=== PATIENT | male | born 1955 | race Two or more races ===

== ENCOUNTER 2018-03-21 17:12 | Inpatient (IN) | payer MEDICARE, MEDICAID ==
[2018-03-21 19:11] LABS: % BASOPHILS 0.6 % (0.0-2.0); % EOSINOPHILS 1.4 % (0.0-5.0); % LYMPHOCYTES 45.2 % (20.0-50.0); % MONOCYTES 8.4 % (2.0-10.0); % NEUTROPHILS 44.4 % (40.0-80.0); EOSINOPHILE ABSOLUTE 0.1 Th/cmm (0.1-0.4); HEMATOCRIT 37.1 % (41.0-60); HEMOGLOBIN 12.4 gm/dL (12-16); LYMPHOCYTE ABSOLUTE 3.6 Th/cmm (1.5-3.0); MEAN CELL VOLUME 92.4 fl (80-99); MEAN CORPUSCULAR HEMOGLOBIN 30.8 pg (26.0-30.0); MEAN CORPUSCULAR HGB CONC 33.4 pg (28.0-36.0); MEAN PLATELET VOLUME 9.4 fl; MONOCYTE ABSOLUTE 0.6 Th/cmm (0.3-1.0); NEUTROPHILE ABSOLUTE 3.4 Th/cmm (1.8-8.0); PLATELET COUNT 285 Th/cmm (150-400); RED BLOOD COUNT 4.02 Mil/cmm (4.30-5.70); RED CELL DISTRIBUTION WIDTH 13.4 % (11.5-20.0); WHITE BLOOD COUNT 7.7 Th/cmm (4.8-10.8)
[2018-03-21 19:30] LABS: ACETAMINOPHEN < 10.0 ug/mL (10.0-30.0); ALB/GLOB RATIO 1.4 (1.0-1.8); ALBUMIN 3.9 gm/dL (4.2-5.5); ALKALINE PHOSPHATASE 67 U/L (34-104); ANION GAP 13.6 (7.0-16.0); BILIRUBIN,TOTAL 0.3 mg/dL (0.3-1.0); BUN - UREA NITROGEN 28 mg/dL (7-25); CALCIUM SERUM 10.1 mg/dL (8.6-10.3); CHLORIDE 105 mEq/L (98-107); CHOLESTEROL 152 mg/dL (<200); CREATININE - SERUM 1.1 mg/dL (0.7-1.3); GFR AFRICAN-AMERICAN > 60.0 ml/min (>90); GFR NON AFRICAN-AMERICAN > 60.0 ml/min; GLUCOSE 196 mg/dL (70-105); HDL -HIGH DENSITY LIPOPROTEIN 30 mg/dL (23-92); POTASSIUM SERUM 4.6 mEq/L (3.5-5.1); SALICYLATES (ASPIRIN) < 25.0 mg/L (30.0-100.0); SGOT 10 U/L (13-39); SGPT/ALT 10 U/L (7-52); SODIUM SERUM 137 mEq/L (136-145); TOTAL PROTEIN,SERUM 6.6 gm/dL (6.0-8.3); TRIGLYCERIDES 145 mg/dL (<150)
[2018-03-21 23:10] VITALS: BP 128/82
[2018-03-21] MEDS ORDERED: Maalox 30 mL Cup PO PRN (23:11)
[2018-03-21] MEDS ORDERED: Magnesium Hydroxide (MOM) 30 mL UDC PO PRN (23:11)
[2018-03-21] MEDS ORDERED: Non-Formulary Item 1 EA (Glucagon,Human Recombinant [Glucagon Emergency Kit] 1 MG) IM PRN (23:47)
--- NOTE | 2018-03-22 04:50 | ED Physician Chart ---
ED Chief Complaint/HPI - Patient Information Date Seen:: 03/21/18 Time Seen:: 17:40 Chief Complaint:: Agitation History of Present Illness:: onset x 2 days of agitation and aggressive behavior; no report of trauma, SIs, H /As, neck pain, C/P, SOB, Abd. Pain, A/N/V/D/C, fever, chills, or urinary s/s Allergies:: Allergies Allergy/AdvReac Type Severity Reaction Status Date / Time diphenhydramine Allergy Verified 03/21/18 17:40 [From Benadryl] risperidone [From Risperdal] Allergy Verified 03/21/18 17:41 Historian:: Patient, EMS Review:: Nurse's Note Reviewed, Old Chart Reviewed, EMS run form Reviewed ED Review of Systems - Review of Systems General/Constitutional: No fever, No chills, No weight loss, No weakness, No diaphoresis, No edema, No loss of appetite Skin: No skin lesions, No rash, No bruising Head: No headache, No light-headedness Eyes: No loss of vision, No pain, No diplopia ENT: No earache, No nasal drainage, No sore throat, No tinnitus Neck: No neck pain, No swelling, No thyromegaly, No stiffness, No mass noted Cardio Vascular: No chest pain, No palpitations, No PND, No orthopnea, No edema Pulmonary: No SOB, No cough, No sputum, No wheezing GI: No nausea, No vomiting, No diarrhea, No pain, No melena, No hematochezia, No constipation, No hematemesis G/U: No dysuria, No frequency, No hematuria, No nacturia Musculoskeletal: No bone or joint pain, No back pain, No muscle pain Endocrine: No polyuria, No polydipsia Psychiatric: Prior psych history, No depression, Anxiety, No suicidal ideation, No homicidal ideation, No auditory hallucination, No visual hallucination Hematopoietic: No bruising, No lymphadenopathy Allergic/Immuno: No urticaria, No angioedema Neurological: No syncope, No focal symptoms, No weakness, No paresthesia, No headache, No seizure, No dizziness, Confusion, No vertigo ED Past Medical History - Past Medical History Obtainable: Yes Past Medical History: HTN, DM, Dyslipidemia, Dementia Family History: Diabetes Melitus, HTN Social History: Non Smoker, No Alcohol, No Drug Use, Single, Care Facility Surgical History: None Psychiatricy History: Schizophrenia, Bipolar, Dementia Medication: Reviewed Family Medical History - Family Member Mother History Unknown: Yes ED Physical Exam - Physical Examination General/Constitutional: Awake, Well-developed, well-nourished, Alert, No distress, GCS 15, Non-toxic appearing, Ambulatory Head: Atraumatic Eyes: Lids, conjuctiva normal, PERRL, EOMI Skin: Nl inspection, No rash, No skin lesions, No ecchymosis, Well hydrated, No lymphadenopathy ENMT: External ears, nose nl, TM canals nl, Nasal exam nl, Lips, teeth, gums nl , Oropharynx nl, Tonsils nl Neck: Nontender, Full ROM w/o pain, No JVD, No nuchal rigidity, No bruit, No mass, No stridor Respiratory: Nl effort/Exclusion, Clear to Auscultation, No Wheeze/Rhonchi/Rales Cardio Vascular: RRR, No murmur, gallop, rubs, NL S1 S2, Carotid/Femoral/Distal pulses equal bilaterally GI: No tenderness/rebounding/guarding, No organomegaly, No hernia, Normal BS's, Nondistended, No mass/bruits, No McBurney tenderness : No CVA tenderness Extremities: No tenderness or effusion, Full ROM, normal strength in all extremities, No edema, Normal digits & nails Neuro/Psych: Alert/oriented, DTR's symmetric, Normal sensory exam, Normal motor strength, Judgement/insight normal, Mood normal, Normal gait, No focal deficits Other Neuro/Psych comments:: + Psychomotor Agitation; no SIs; Mood/Affect: Labile Misc: Normal back, No paraspinal tenderness ED Labs/Radiology/EKG Results - Lab Results Results: Laboratory Tests 03/21/18 03/21/18 03/21/18 18:50 18:50 18:50 WBC 7.7 RBC 4.02 L Hgb 12.4 Hct 37.1 L MCV 92.4 MCH 30.8 H MCHC Differential 33.4 RDW 13.4 Plt Count 285 MPV 9.4 Neutrophils % 44.4 Lymphocytes % 45.2 Monocytes % 8.4 Eosinophils % 1.4 Basophils % 0.6 Sodium 137 Potassium 4.6 Chloride 105 Carbon Dioxide 23.0 Anion Gap 13.6 BUN 28 H Creatinine 1.1 Est GFR ( Amer) > 60.0 Est GFR (Non-Af Amer) > 60.0 BUN/Creatinine Ratio 25.5 Glucose 196 H Calcium 10.1 Total Bilirubin 0.3 AST 10 L ALT 10 Alkaline Phosphatase 67 Troponin I Total Protein 6.6 Albumin 3.9 L Globulin 2.7 Albumin/Globulin Ratio 1.4 Triglycerides 145 Cholesterol 152 LDL Cholesterol Direct 95 HDL Cholesterol 30 TSH 1.32 Salicylates < 25.0 L Acetaminophen < 10.0 L Ethyl Alcohol < 10 03/21/18 18:50 WBC RBC Hgb Hct MCV MCH MCHC Differential RDW Plt Count MPV Neutrophils % Lymphocytes % Monocytes % Eosinophils % Basophils % Sodium Potassium Chloride Carbon Dioxide Anion Gap BUN Creatinine Est GFR ( Amer) Est GFR (Non-Af Amer) BUN/Creatinine Ratio Glucose Calcium Total Bilirubin AST ALT Alkaline Phosphatase Troponin I < 0.01 L Total Protein Albumin Globulin Albumin/Globulin Ratio Triglycerides Cholesterol LDL Cholesterol Direct HDL Cholesterol TSH Salicylates Acetaminophen Ethyl Alcohol Comments:: Reviewed - EKG Interpretations EKG Time:: 19:12 Rate & Rhythm: 97; NSR Comments:: non-specific st-t changes ED Septic Shock - . Is Septic Shock (SBP<90, OR Lactate>4 mmol\L) present?: No ED Reassessment (Disposition) - Reassessment Reassessment Condition:: Improved - Diagnosis Diagnosis:: Agitation; Medical Clearance; Psychosis; Bipolar Disorder; Schizophrenia - Aftercare/Follow up Instructions Aftercare/Follow-Up Instructions:: Counseled pt regarding lab results/diagnosis & need follow up, Counseled pt & family regarding lab results/diagnosis & need follow up - Patient Disposition Discharge/Transfer:: Acute Care w/in this hosp Admitted to:: [facility] Condition at Disposition:: Stable, Improved
[2018-03-22] MEDS: INSULIN ASPART, RECOMBINANT 100 UNITS/ML SUBQ SCH ×4 (06:36→22:35)
[2018-03-22] MEDS ORDERED: GLUCAGON HCl 1 MG KIT IM PRN (08:59)
[2018-03-22] MEDS: Multivitamin Tab PO SCH (09:24)
--- NOTE | 2018-03-22 16:40 | History & Physical ---
ADMIT DATE: 03/21/2018 CHIEF COMPLAINT: Admitted to inpatient [facility]. HISTORY OF PRESENT ILLNESS: This is a 63-year-old male with history of hypertension, hypercholesterolemia, diabetes, admitted from nursing facility under the service of Dr. Jefferson. The patient denies any fever, chills, night sweats, or chest pain. PAST MEDICAL HISTORY: As mentioned in history of present illness. PAST SURGICAL HISTORY: Denies surgeries. ALLERGIES: BENADRYL, RISPERIDONE. MEDICATIONS: Cogentin, Depakote, Haldol, insulin, Norvasc, atorvastatin, Colace, glucagon, Levemir, Tradjenta, lisinopril, and metformin. FAMILY HISTORY: Noncontributory. SOCIAL HISTORY: The patient smokes on occasion, does not drink or intravenous drug use. The patient is with 1 child. REVIEW OF SYSTEMS: GENERAL: The patient denies any constitutional symptoms. HEENT: No blurred vision. LUNGS: No diagnoses of COPD or asthma. HEART: The patient with hypertension, diabetes. ABDOMEN: No nausea, vomiting, or pain. GENITOURINARY: The patient denies increased frequency or dysuria. NEUROLOGIC: No headache, seizure, or syncope. PSYCHIATRIC: See above. PHYSICAL EXAMINATION: VITAL SIGNS: Blood pressure 134/76, respirations 20, pulse 105, temperature 97.3. GENERAL: An elderly male who appears his stated age. The patient ____ mental state. NECK: Supple. No mass. LUNGS: Equal breath sounds, otherwise clear to auscultation. HEART: Regular rate and rhythm without appreciable murmurs. ABDOMEN: Soft, nontender. EXTREMITIES: No cyanosis or edema. LABORATORY DATA: WBC 7, hemoglobin 12, platelets 285. Sodium 137, potassium 4.6, BUN 20, creatinine 1.1, blood sugar ____, albumin 3.9. ASSESSMENT: 1. Hypertension. 2. Hypercholesterolemia. 3. Diabetes. 4. Anemia. 5. Renal insufficiency. 6. Low albumin. PLAN: We will continue the patient on IV insulin sliding scale. We will monitor for any signs and symptoms of hypoglycemia. Continue blood pressure medication. Continue psychiatric medication. Continue with current care provider, which is Dr. Jefferson. JOB# [id number]
[2018-03-22] MEDS: Insulin Detemir 100 units/mL 10mL Vial SUBQ SCH (21:00)
[2018-03-22] MEDS ORDERED: INSULIN DETEMIR 58 UNIT SC SCH (21:00)
[2018-03-22] MEDS: Atorvastatin Calcium 10 MG TAB PO SCH (21:00)
--- NOTE | 2018-03-23 06:19 | Psychiatric Evaluation ---
DATE OF SERVICE: 03/21/2018 PSYCHIATRIC INITIAL EVALUATION AND MENTAL STATUS EXAM PATIENT'S AGE: 63-year-old SEX: Male. PHYSICIAN: Dr. Jefferson. CHIEF COMPLAINT: Agitation and irritable mood. HISTORY OF PRESENT ILLNESS: The patient is a 63-year-old male who was transferred from [facility] because of increased agitation and combative behavior towards staff. The patient has been suspicious and paranoid and guarded. The patient also has not been able to sleep much at night. He also has been suspicious and increasingly agitated. I received a phone call from [facility] that he cannot control the patient's behavior and that he has been out of control and the patient was transferred to the hospital. PAST PSYCHIATRIC HISTORY: The patient has a history of what seems to be schizoaffective disorder. PAST MEDICAL HISTORY: The patient has diabetes mellitus as well as hypertension and osteoarthritis. SOCIAL HISTORY: The patient said that he is . Also said that he has 1 son, but it seemed that he is not in contact with his son. He also is confused and he thinks that he lives in the hospital when I asked him where do you live "I live here." No known alcohol or drug use. No known legal issues. ALLERGIES: No known allergies. MENTAL STATUS EXAMINATION: The patient appears slightly older than his stated age. Anxious. Flat affect. In a depressed mood. Easily agitated and easily irritable. Thought processes are circumstantial with occasional flight of ideas. The patient seems preoccupied, although he denies any auditory or visual hallucinations or delusions. The patient denied any thoughts of suicide or homicide. The patient is alert and oriented to situation, but not to the place or date or person. Impaired immediate memory, but intact remote memory. Poor insight and poor judgment. ASSESSMENT: PRIMARY DIAGNOSIS: Schizoaffective disorder, mixed type, with psychotic features, severe. TREATMENT PLAN: We will monitor the patient's behavior and condition closely. The patient currently is not taking any antipsychotic medications, but we will start the patient on Seroquel 25 mg every day and we will adjust the dose. Also, we will monitor his behavior and will follow up. ESTIMATED LENGTH OF STAY: 5-7 days. THE PATIENT'S STRENGTHS AND WEAKNESSES: The patient's strength is not clear at this time. Weaknesses are his ineffective coping and poor judgment and poor impulse control. AFTER DISCHARGE PLAN: Outpatient treatment and followup will continue as an outpatient. CRITERIA FOR DISCHARGE: The patient will not be agitated or psychotic and will stabilize psychotropic medications and will establish outpatient treatment plans. Also, the patient will be able to return to [facility]. JOB# [id number]
[2018-03-23] MEDS: INSULIN ASPART, RECOMBINANT 100 UNITS/ML SUBQ SCH ×4 (06:33→20:21)
[2018-03-23] MEDS: Multivitamin Tab PO SCH (09:19)
--- NOTE | 2018-03-23 13:12 | Internal Medicine Prog Note ---
Internal Medicine Subjective - Subjective Patient seen and examined:: with staff, chart reviewed Patient is:: awake, verbal, interactive, in wheelchair Per staff patient has:: no adverse event, no episodes of fall, eating well, tolerating meds Internal Medicine Objective - Results Result Diagrams: 03/21/18 18:50 03/21/18 18:50 Recent Labs: Laboratory Last Values WBC 7.7 Th/cmm (4.8-10.8) 03/21/18 18:50 RBC 4.02 Mil/cmm (4.30-5.70) L 03/21/18 18:50 Hgb 12.4 gm/dL (12-16) 03/21/18 18:50 Hct 37.1 % (41.0-60) L 03/21/18 18:50 MCV 92.4 fl (80-99) 03/21/18 18:50 MCH 30.8 pg (26.0-30.0) H 03/21/18 18:50 MCHC Differential 33.4 pg (28.0-36.0) 03/21/18 18:50 RDW 13.4 % (11.5-20.0) 03/21/18 18:50 Plt Count 285 Th/cmm (150-400) 03/21/18 18:50 MPV 9.4 fl 03/21/18 18:50 Neutrophils % 44.4 % (40.0-80.0) 03/21/18 18:50 Lymphocytes % 45.2 % (20.0-50.0) 03/21/18 18:50 Monocytes % 8.4 % (2.0-10.0) 03/21/18 18:50 Eosinophils % 1.4 % (0.0-5.0) 03/21/18 18:50 Basophils % 0.6 % (0.0-2.0) 03/21/18 18:50 Sodium 137 mEq/L (136-145) 03/21/18 18:50 Potassium 4.6 mEq/L (3.5-5.1) 03/21/18 18:50 Chloride 105 mEq/L (98-107) 03/21/18 18:50 Carbon Dioxide 23.0 mEq/L (21.0-31.0) 03/21/18 18:50 Anion Gap 13.6 (7.0-16.0) 03/21/18 18:50 BUN 28 mg/dL (7-25) H 03/21/18 18:50 Creatinine 1.1 mg/dL (0.7-1.3) 03/21/18 18:50 Est GFR ( Amer) > 60.0 ml/min (>90) 03/21/18 18:50 Est GFR (Non-Af Amer) > 60.0 ml/min 03/21/18 18:50 BUN/Creatinine Ratio 25.5 03/21/18 18:50 Glucose 196 mg/dL (70-105) H 03/21/18 18:50 POC Glucose 274 MG/DL (70 - 105) H 03/23/18 06:05 Calcium 10.1 mg/dL (8.6-10.3) 03/21/18 18:50 Total Bilirubin 0.3 mg/dL (0.3-1.0) 03/21/18 18:50 AST 10 U/L (13-39) L 03/21/18 18:50 ALT 10 U/L (7-52) 03/21/18 18:50 Alkaline Phosphatase 67 U/L (34-104) 03/21/18 18:50 Troponin I < 0.01 ng/mL (0.01-0.05) L 03/21/18 18:50 Total Protein 6.6 gm/dL (6.0-8.3) 03/21/18 18:50 Albumin 3.9 gm/dL (4.2-5.5) L 03/21/18 18:50 Globulin 2.7 gm/dL 03/21/18 18:50 Albumin/Globulin Ratio 1.4 (1.0-1.8) 03/21/18 18:50 Triglycerides 145 mg/dL (<150) 03/21/18 18:50 Cholesterol 152 mg/dL (<200) 03/21/18 18:50 LDL Cholesterol Direct 95 mg/dL (75-193) 03/21/18 18:50 HDL Cholesterol 30 mg/dL (23-92) 03/21/18 18:50 TSH 1.32 uIU/ml (0.34-5.60) 03/21/18 18:50 Salicylates < 25.0 mg/L (30.0-100.0) L 03/21/18 18:50 Acetaminophen < 10.0 ug/mL (10.0-30.0) L 03/21/18 18:50 Ethyl Alcohol < 10 mg/dL (0-10) 03/21/18 18:50 RPR NONREACTIVE (NONREACTIVE) 03/21/18 18:50 - Physical Exam Vitals and I&O: Vital Signs Temp 97 F 03/23/18 06:31 Pulse 102 03/23/18 09:20 Resp 19 03/23/18 06:31 BP 113/73 03/23/18 09:20 Pulse Ox 99 03/23/18 06:31 Intake & Output 03/22/18 03/23/18 03/23/18 18:59 06:59 18:59 Intake Total 900 120 Balance 900 120 Intake: Oral 900 120 Other: # Voids 3 3 # Bowel Movements 1 Stool Characteristics Soft Soft Active Medications: Current Medications Acetaminophen (Tylenol) 650 mg PO Q4H PRN PRN Reason: Pain Or Fever above 101 Stop: 05/20/18 23:48 Al Hydrox/Mg Hydrox/Simethicone (Maalox) 30 ml PO Q4HR PRN PRN Reason: GI DISTRESS Stop: 05/20/18 23:10 Amlodipine Besylate (Norvasc) 5 mg PO DAILY [facility] Stop: 05/21/18 08:59 Last Admin: 03/23/18 09:20 Dose: 5 mg Atorvastatin Calcium (Lipitor) 10 mg PO HS [facility] Stop: 05/21/18 20:59 Last Admin: 03/22/18 21:00 Dose: 10 mg Docusate Sodium (Colace) 100 mg PO DAILY [facility] Stop: 05/21/18 08:59 Last Admin: 03/23/18 09:19 Dose: 100 mg Glucagon (Glucagen) 1 mg IM DAILY PRN PRN Reason: High Sugar Levels Stop: 05/21/18 08:58 Insulin Aspart (Novolog) 0 units SUBQ [facility]; Protocol Stop: 05/21/18 07:29 Last Admin: 03/23/18 06:33 Dose: 4 units Insulin Detemir (Levemir Insulin) 58 units SUBQ [facility] Stop: 05/21/18 20:59 Last Admin: 03/22/18 21:00 Dose: Not Given Lisinopril (Zestril) 10 mg PO DAILY [facility] Stop: 05/21/18 08:59 Last Admin: 03/23/18 09:19 Dose: 10 mg Lorazepam (Ativan) 0.5 mg PO Q4HR PRN; Protocol PRN Reason: Anxiety Stop: 04/20/18 23:10 Magnesium Hydroxide (Milk Of Magnesia) 30 ml PO HS PRN PRN Reason: Constipation Metformin HCl (Glucophage) 1,000 mg PO BIDWM [facility] Stop: 05/21/18 07:59 Last Admin: 03/23/18 08:00 Dose: 1,000 mg Multivitamins/Vitamin C (Theragran) 1 tab PO DAILY [facility] Stop: 05/21/18 08:59 Last Admin: 03/23/18 09:19 Dose: 1 tab Quetiapine Fumarate (Seroquel) 25 mg PO BID [facility]; Protocol Stop: 05/21/18 08:59 Last Admin: 03/23/18 09:18 Dose: 25 mg Zolpidem Tartrate (Ambien) 5 mg PO HS PRN PRN Reason: Insomnia Stop: 05/20/18 23:10 HEENT: NC/AT, PERRLA, EOMI Neck: Supple, No JVD, No thyromegaly Lungs: CTAB Cardiovascular: RRR, Normal S1, Normal S2 Abdomen: soft, non-tender, non-distended, positive bowel sound Extremities: excoriation Neurological: no change Internal Medicine Assmt/Plan - Assessment Assessment: ASSESSMENT: 1. Hypertension. 2. Hypercholesterolemia. 3. Diabetes. 4. Anemia. 5. Renal insufficiency. 6. Low albumin. - Plan Plan: PLAN: We will continue the patient on IV insulin sliding scale. We will monitor for any signs and symptoms of hypoglycemia. Continue blood pressure medication. Continue psychiatric medication. Continue with current care provider, which is Dr. Jefferson. Nutritional Asmnt/Malnutr-PDOC - Dietary Evaluation Malnutrition Findings (Please click <Entered> for more info): Nutritional Asmnt/Malnutrition Start: 03/22/18 11: 29 Text: Status: Complete Freq: Protocol: Document 03/22/18 11:30 RHAQUE (Rec: 03/22/18 11:38 RHAQUE JAYDEN) Nutritional Asmnt/Malnutrition Patient General Information Nutritional Screening High Risk Diagnosis Agitation, Combative Pertinent Medical Hx/Surgical Hx HTN, DM, Dyslipidemia, Dementia, Schizophrenia, Bipolar (Per MD's note). Also BPH, Osteoarthritis, Psychosis , Anxiety, Major Depression ( per Nurse's note) Subjective Information Pt preferred to communicate in romanian when he was visited. Did not ask for extra food or snacks. Both the nurse & MAGAZINE SUPERVISOR described him as very quiet, well behaved and introverted. Neither was certain of any B.M .'s Current Diet Order/ Nutrition Support [place] [id number] GM Patient / S.O Not Indicated Pertinent Medications Maalox, Lipitor, Docusate, Glucagon, Insulin Aspart, Insulin Detemir, MOM, Metformin HCl, Multivitamins, Ambien Pertinent Labs (03/21) Gluc 196; (03/22) POC Gluc 284 Nutritional Hx/Data Height 1.73 m Height (Calculated Centimeters) 172.7 Current Weight (lbs) 74.843 kg Weight (Calculated Kilograms) 74.8 Weight (Calculated Grams) 23106.7 [place] Body Weight 154 % [place] Body Weight 107 Body Mass Index (BMI) 25.0 Weight Status Approriate GI Symptoms GI Symptoms None Last BM None Noted Difficult in: None Food Allergies No Cultural/Ethnic/Denominational Belief None Noted Skin Integrity/Comment: No documentation available Current %PO Good (75-100%) Estimated Nutritional Goals BEE in Kcals: Adj wt of IBW Calories/Kcals/Kg 25-30 Kcals Calculated 9250-3878 Protein g/k.8-1 Protein Calculated 57-71 Fluid: ml [id number] Nutritional Problem 1. Problem Problem altered Nutritional related Lab values Etiology due to inadequate medication dosage aeb Signs/Symptoms: Hyperglycemia: (03/21) Gluc 196 ; (03/22) POC Gluc 284 Malnutrition Alert Is there a minimum of two criteria No selected? Query Text:Check all the applicable criteria. A minimum of two criteria are recommended for diagnosis of either severe or non-severe malnutrition. Malnutrition Related to Morbid Obesity Malnutrition related to morbid obesity No Intervention/Recommendation Comments Recommend MD's adjustment of DM medication and continuation of [place] [id number] diet. Expected Outcomes/Goals Expected Outcomes/Goals - Maintain 100% PO Intake - Gluc labs return to WNL - Monitor for constipation, no record of B.M.'s since admission - F/U in 3-5 days as
[2018-03-23] MEDS ORDERED: INSULIN ASPART, RECOMBINANT 100 UNITS/ML SUBQ ONE (13:25)
[2018-03-23] MEDS: Atorvastatin Calcium 10 MG TAB PO SCH (20:20)
[2018-03-23] MEDS: Insulin Detemir 100 units/mL 10mL Vial SUBQ SCH (20:22)
[2018-03-24] MEDS: INSULIN ASPART, RECOMBINANT 100 UNITS/ML SUBQ SCH ×4 (06:29→20:30)
[2018-03-24] MEDS: Multivitamin Tab PO SCH (09:05)
--- NOTE | 2018-03-24 11:06 | Internal Medicine Prog Note ---
Internal Medicine Subjective - Subjective Service Date: 03/24/18 Patient is:: awake, verbal, interactive, in wheelchair Per staff patient has:: no adverse event, no episodes of fall, eating well, tolerating meds Internal Medicine Objective - Results Result Diagrams: 03/21/18 18:50 03/21/18 18:50 Recent Labs: Laboratory Last Values WBC 7.7 Th/cmm (4.8-10.8) 03/21/18 18:50 RBC 4.02 Mil/cmm (4.30-5.70) L 03/21/18 18:50 Hgb 12.4 gm/dL (12-16) 03/21/18 18:50 Hct 37.1 % (41.0-60) L 03/21/18 18:50 MCV 92.4 fl (80-99) 03/21/18 18:50 MCH 30.8 pg (26.0-30.0) H 03/21/18 18:50 MCHC Differential 33.4 pg (28.0-36.0) 03/21/18 18:50 RDW 13.4 % (11.5-20.0) 03/21/18 18:50 Plt Count 285 Th/cmm (150-400) 03/21/18 18:50 MPV 9.4 fl 03/21/18 18:50 Neutrophils % 44.4 % (40.0-80.0) 03/21/18 18:50 Lymphocytes % 45.2 % (20.0-50.0) 03/21/18 18:50 Monocytes % 8.4 % (2.0-10.0) 03/21/18 18:50 Eosinophils % 1.4 % (0.0-5.0) 03/21/18 18:50 Basophils % 0.6 % (0.0-2.0) 03/21/18 18:50 Sodium 137 mEq/L (136-145) 03/21/18 18:50 Potassium 4.6 mEq/L (3.5-5.1) 03/21/18 18:50 Chloride 105 mEq/L (98-107) 03/21/18 18:50 Carbon Dioxide 23.0 mEq/L (21.0-31.0) 03/21/18 18:50 Anion Gap 13.6 (7.0-16.0) 03/21/18 18:50 BUN 28 mg/dL (7-25) H 03/21/18 18:50 Creatinine 1.1 mg/dL (0.7-1.3) 03/21/18 18:50 Est GFR ( Amer) > 60.0 ml/min (>90) 03/21/18 18:50 Est GFR (Non-Af Amer) > 60.0 ml/min 03/21/18 18:50 BUN/Creatinine Ratio 25.5 03/21/18 18:50 Glucose 196 mg/dL (70-105) H 03/21/18 18:50 POC Glucose 80 MG/DL (70 - 105) 03/24/18 06:28 Calcium 10.1 mg/dL (8.6-10.3) 03/21/18 18:50 Total Bilirubin 0.3 mg/dL (0.3-1.0) 03/21/18 18:50 AST 10 U/L (13-39) L 03/21/18 18:50 ALT 10 U/L (7-52) 03/21/18 18:50 Alkaline Phosphatase 67 U/L (34-104) 03/21/18 18:50 Troponin I < 0.01 ng/mL (0.01-0.05) L 03/21/18 18:50 Total Protein 6.6 gm/dL (6.0-8.3) 03/21/18 18:50 Albumin 3.9 gm/dL (4.2-5.5) L 03/21/18 18:50 Globulin 2.7 gm/dL 03/21/18 18:50 Albumin/Globulin Ratio 1.4 (1.0-1.8) 03/21/18 18:50 Triglycerides 145 mg/dL (<150) 03/21/18 18:50 Cholesterol 152 mg/dL (<200) 03/21/18 18:50 LDL Cholesterol Direct 95 mg/dL (75-193) 03/21/18 18:50 HDL Cholesterol 30 mg/dL (23-92) 03/21/18 18:50 TSH 1.32 uIU/ml (0.34-5.60) 03/21/18 18:50 Salicylates < 25.0 mg/L (30.0-100.0) L 03/21/18 18:50 Acetaminophen < 10.0 ug/mL (10.0-30.0) L 03/21/18 18:50 Ethyl Alcohol < 10 mg/dL (0-10) 03/21/18 18:50 RPR NONREACTIVE (NONREACTIVE) 03/21/18 18:50 - Physical Exam Vitals and I&O: Vital Signs Temp 98.1 F 03/24/18 05:49 Pulse 104 03/24/18 09:07 Resp 18 03/24/18 05:49 BP 104/55 03/24/18 09:07 Pulse Ox 96 03/24/18 05:49 Intake & Output 03/23/18 03/24/18 03/24/18 18:59 06:59 18:59 Intake Total 900 120 Balance 900 120 Intake: Oral 900 120 Other: # Voids 3 2 # Bowel Movements 1 0 Stool Characteristics Soft Soft Active Medications: Current Medications Acetaminophen (Tylenol) 650 mg PO Q4H PRN PRN Reason: Pain Or Fever above 101 Stop: 05/20/18 23:48 Al Hydrox/Mg Hydrox/Simethicone (Maalox) 30 ml PO Q4HR PRN PRN Reason: GI DISTRESS Stop: 05/20/18 23:10 Amlodipine Besylate (Norvasc) 5 mg PO DAILY [facility] Stop: 05/21/18 08:59 Last Admin: 03/24/18 09:06 Dose: Not Given Atorvastatin Calcium (Lipitor) 10 mg PO HS [facility] Stop: 05/21/18 20:59 Last Admin: 03/23/18 20:20 Dose: 10 mg Docusate Sodium (Colace) 100 mg PO DAILY [facility] Stop: 05/21/18 08:59 Last Admin: 03/24/18 09:05 Dose: 100 mg Glucagon (Glucagen) 1 mg IM DAILY PRN PRN Reason: High Sugar Levels Stop: 05/21/18 08:58 Insulin Aspart (Novolog) 0 units SUBQ [facility]; Protocol Stop: 05/21/18 07:29 Last Admin: 03/24/18 06:29 Dose: Not Given Insulin Detemir (Levemir Insulin) 58 units SUBQ HS [facility] Stop: 05/21/18 20:59 Last Admin: 03/23/18 20:22 Dose: 58 unit Lisinopril (Zestril) 10 mg PO DAILY [facility] Stop: 05/21/18 08:59 Last Admin: 03/24/18 09:07 Dose: Not Given Lorazepam (Ativan) 0.5 mg PO Q4HR PRN; Protocol PRN Reason: Anxiety Stop: 04/20/18 23:10 Magnesium Hydroxide (Milk Of Magnesia) 30 ml PO HS PRN PRN Reason: Constipation Metformin HCl (Glucophage) 1,000 mg PO BIDWM [facility] Stop: 05/21/18 07:59 Last Admin: 03/24/18 09:05 Dose: 1,000 mg Multivitamins/Vitamin C (Theragran) 1 tab PO DAILY [facility] Stop: 05/21/18 08:59 Last Admin: 03/24/18 09:05 Dose: 1 tab Mupirocin (Bactroban Oint) 1 appl NS BID [facility] Stop: 03/28/18 09:01 Last Admin: 03/24/18 09:09 Dose: 1 appl Quetiapine Fumarate (Seroquel) 25 mg PO BID [facility]; Protocol Stop: 05/21/18 08:59 Last Admin: 03/24/18 09:06 Dose: 25 mg Zolpidem Tartrate (Ambien) 5 mg PO HS PRN PRN Reason: Insomnia Stop: 05/20/18 23:10 HEENT: NC/AT, PERRLA, EOMI Neck: Supple, No JVD, No thyromegaly Lungs: CTAB Cardiovascular: RRR, Normal S1, Normal S2 Abdomen: soft, non-tender, non-distended, positive bowel sound Extremities: excoriation Neurological: no change Internal Medicine Assmt/Plan - Assessment Assessment: . Hypertension. 2. Hypercholesterolemia. 3. Diabetes. 4. Anemia. 5. Renal insufficiency. 6. Low albumin. - Plan Plan: continue with sliding scale fall precautions continue current plan of care Nutritional Asmnt/Malnutr-PDOC - Dietary Evaluation Malnutrition Findings (Please click <Entered> for more info): Nutritional Asmnt/Malnutrition Start: 03/22/18 11: 29 Text: Status: Complete Freq: Protocol: Document 03/22/18 11:30 RHAQUE (Rec: 03/22/18 11:38 RHAQUE JAYDEN) Nutritional Asmnt/Malnutrition Patient General Information Nutritional Screening High Risk Diagnosis Agitation, Combative Pertinent Medical Hx/Surgical Hx HTN, DM, Dyslipidemia, Dementia, Schizophrenia, Bipolar (Per MD's note). Also BPH, Osteoarthritis, Psychosis , Anxiety, Major Depression ( per Nurse's note) Subjective Information Pt preferred to communicate in hungarian when he was visited. Did not ask for extra food or snacks. Both the nurse & [employer] described him as very quiet, well behaved and introverted. Neither was certain of any B.M .'s Current Diet Order/ Nutrition Support [place] [id number] GM Patient / S.O Not Indicated Pertinent Medications Maalox, Lipitor, Docusate, Glucagon, Insulin Aspart, Insulin Detemir, MOM, Metformin HCl, Multivitamins, Ambien Pertinent Labs (03/21) Gluc 196; (03/22) POC Gluc 284 Nutritional Hx/Data Height 5 ft 8 in Height (Calculated Centimeters) 172.7 Current Weight (lbs) 165 lb Weight (Calculated Kilograms) 74.8 Weight (Calculated Grams) 93371.7 [place] Body Weight 154 % [place] Body Weight 107 Body Mass Index (BMI) 25.0 Weight Status Approriate GI Symptoms GI Symptoms None Last BM None Noted Difficult in: None Food Allergies No Cultural/Ethnic/Mandaen Belief None Noted Skin Integrity/Comment: No documentation available Current %PO Good (75-100%) Estimated Nutritional Goals BEE in Kcals: Adj wt of IBW Calories/Kcals/Kg 25-30 Kcals Calculated 3397-9728 Protein g/k.8-1 Protein Calculated 57-71 Fluid: ml 6068-9918 Nutritional Problem 1. Problem Problem altered Nutritional related Lab values Etiology due to inadequate medication dosage aeb Signs/Symptoms: Hyperglycemia: (03/21) Gluc 196 ; (03/22) POC Gluc 284 Malnutrition Alert Is there a minimum of two criteria No selected? Query Text:Check all the applicable criteria. A minimum of two criteria are recommended for diagnosis of either severe or non-severe malnutrition. Malnutrition Related to Morbid Obesity Malnutrition related to morbid obesity No Intervention/Recommendation Comments Recommend MD's adjustment of DM medication and continuation of [place] [address] diet. Expected Outcomes/Goals Expected Outcomes/Goals - Maintain 100% PO Intake - Gluc labs return to WNL - Monitor for constipation, no record of B.M.'s since admission - F/U in 3-5 days as
[2018-03-24] MEDS: Atorvastatin Calcium 10 MG TAB PO SCH (20:29)
[2018-03-24] MEDS: Insulin Detemir 100 units/mL 10mL Vial SUBQ SCH (20:31)
--- NOTE | 2018-03-24 23:00 | Progress Notes ---
DATE: 03/24/2018 SUBJECTIVE: The patient was seen and evaluated. The patient's chart reviewed. This is Dr. Garcia covering for Dr. Jefferson. IDENTIFYING DATA: He is a 63-year-old male who was brought in here and transferred from [facility] because of increased agitation and combative behavior towards the staff. He has been suspicious, paranoid. CURRENT MEDICATION REGIMEN. The patient is on amlodipine, ____ glucagon, insulin, lisinopril, metformin, Seroquel 25 mg p.o. b.i.d. Overnight nursing staff reported the patient had been suspicious. Today on elra-ak-npcy evaluation, the patient is guarded, withdrawn, minimally interactive in the interview, mostly preoccupied about trying his picture. MENTAL STATUS EXAMINATION: Suspicious, agitated. PLAN: The patient is a 63-year-old male with a previous history of schizophrenia, tolerating to recent increase of Seroquel to 50 mg a day. We will continue to monitor and evaluate as medication continued to build steady state. To target the patient's ongoing agitated behavior. JOB# [id number]
--- NOTE | 2018-03-25 02:54 | Progress Notes ---
DATE: 03/23/2018 SUBJECTIVE: Chart reviewed and the patient interviewed. Also, discussed the patient's condition with the staff and reviewed records and labs. The patient is still increasingly agitated and is still in irritable mood. The patient also still need close monitoring of his behavior. Also, is still suspicious and paranoid. The patient also is still having anger and irritability for no reason. On the other hand, the patient is compliant with taking his medications with no side effects of medications. TREATMENT PLAN: We will continue to monitor his behavior and will continue to work on his irritability and his psychosis and poor impulse control. JOB# [id number]
[2018-03-25] MEDS: INSULIN ASPART, RECOMBINANT 100 UNITS/ML SUBQ SCH ×4 (06:42→21:29)
[2018-03-25] MEDS: Multivitamin Tab PO SCH (08:22)
--- NOTE | 2018-03-25 12:34 | Internal Medicine Prog Note ---
Internal Medicine Subjective - Subjective Service Date: 03/25/18 Patient is:: awake, verbal, interactive, in wheelchair Per staff patient has:: no adverse event, no episodes of fall, eating well, tolerating meds Internal Medicine Objective - Results Result Diagrams: 03/21/18 18:50 03/21/18 18:50 Recent Labs: Laboratory Last Values WBC 7.7 Th/cmm (4.8-10.8) 03/21/18 18:50 RBC 4.02 Mil/cmm (4.30-5.70) L 03/21/18 18:50 Hgb 12.4 gm/dL (12-16) 03/21/18 18:50 Hct 37.1 % (41.0-60) L 03/21/18 18:50 MCV 92.4 fl (80-99) 03/21/18 18:50 MCH 30.8 pg (26.0-30.0) H 03/21/18 18:50 MCHC Differential 33.4 pg (28.0-36.0) 03/21/18 18:50 RDW 13.4 % (11.5-20.0) 03/21/18 18:50 Plt Count 285 Th/cmm (150-400) 03/21/18 18:50 MPV 9.4 fl 03/21/18 18:50 Neutrophils % 44.4 % (40.0-80.0) 03/21/18 18:50 Lymphocytes % 45.2 % (20.0-50.0) 03/21/18 18:50 Monocytes % 8.4 % (2.0-10.0) 03/21/18 18:50 Eosinophils % 1.4 % (0.0-5.0) 03/21/18 18:50 Basophils % 0.6 % (0.0-2.0) 03/21/18 18:50 Sodium 137 mEq/L (136-145) 03/21/18 18:50 Potassium 4.6 mEq/L (3.5-5.1) 03/21/18 18:50 Chloride 105 mEq/L (98-107) 03/21/18 18:50 Carbon Dioxide 23.0 mEq/L (21.0-31.0) 03/21/18 18:50 Anion Gap 13.6 (7.0-16.0) 03/21/18 18:50 BUN 28 mg/dL (7-25) H 03/21/18 18:50 Creatinine 1.1 mg/dL (0.7-1.3) 03/21/18 18:50 Est GFR ( Amer) > 60.0 ml/min (>90) 03/21/18 18:50 Est GFR (Non-Af Amer) > 60.0 ml/min 03/21/18 18:50 BUN/Creatinine Ratio 25.5 03/21/18 18:50 Glucose 196 mg/dL (70-105) H 03/21/18 18:50 POC Glucose 316 MG/DL (70 - 105) H 03/25/18 11:29 Calcium 10.1 mg/dL (8.6-10.3) 03/21/18 18:50 Total Bilirubin 0.3 mg/dL (0.3-1.0) 03/21/18 18:50 AST 10 U/L (13-39) L 03/21/18 18:50 ALT 10 U/L (7-52) 03/21/18 18:50 Alkaline Phosphatase 67 U/L (34-104) 03/21/18 18:50 Troponin I < 0.01 ng/mL (0.01-0.05) L 03/21/18 18:50 Total Protein 6.6 gm/dL (6.0-8.3) 03/21/18 18:50 Albumin 3.9 gm/dL (4.2-5.5) L 03/21/18 18:50 Globulin 2.7 gm/dL 03/21/18 18:50 Albumin/Globulin Ratio 1.4 (1.0-1.8) 03/21/18 18:50 Triglycerides 145 mg/dL (<150) 03/21/18 18:50 Cholesterol 152 mg/dL (<200) 03/21/18 18:50 LDL Cholesterol Direct 95 mg/dL (75-193) 03/21/18 18:50 HDL Cholesterol 30 mg/dL (23-92) 03/21/18 18:50 TSH 1.32 uIU/ml (0.34-5.60) 03/21/18 18:50 Salicylates < 25.0 mg/L (30.0-100.0) L 03/21/18 18:50 Acetaminophen < 10.0 ug/mL (10.0-30.0) L 03/21/18 18:50 Ethyl Alcohol < 10 mg/dL (0-10) 03/21/18 18:50 RPR NONREACTIVE (NONREACTIVE) 03/21/18 18:50 - Physical Exam Vitals and I&O: Vital Signs Temp 97.9 F 03/25/18 06:41 Pulse 103 03/25/18 08:22 Resp 20 03/25/18 06:41 BP 128/81 03/25/18 08:22 Pulse Ox 98 03/25/18 06:41 Intake & Output 03/24/18 03/25/18 03/25/18 18:59 06:59 18:59 Intake Total 950 480 Balance 950 480 Intake: Oral 950 480 Other: # Voids 4 2 # Bowel Movements 1 Stool Characteristics Soft Active Medications: Current Medications Acetaminophen (Tylenol) 650 mg PO Q4H PRN PRN Reason: Pain Or Fever above 101 Stop: 05/20/18 23:48 Al Hydrox/Mg Hydrox/Simethicone (Maalox) 30 ml PO Q4HR PRN PRN Reason: GI DISTRESS Stop: 05/20/18 23:10 Amlodipine Besylate (Norvasc) 5 mg PO DAILY [facility] Stop: 05/21/18 08:59 Last Admin: 03/25/18 08:22 Dose: 5 mg Atorvastatin Calcium (Lipitor) 10 mg PO HS [facility] Stop: 05/21/18 20:59 Last Admin: 03/24/18 20:29 Dose: 10 mg Docusate Sodium (Colace) 100 mg PO DAILY [facility] Stop: 05/21/18 08:59 Last Admin: 03/25/18 08:21 Dose: 100 mg Glucagon (Glucagen) 1 mg IM DAILY PRN PRN Reason: High Sugar Levels Stop: 05/21/18 08:58 Insulin Aspart (Novolog) 0 units SUBQ [facility]; Protocol Stop: 05/21/18 07:29 Last Admin: 03/25/18 11:34 Dose: 6 units Insulin Detemir (Levemir Insulin) 58 units SUBQ HS [facility] Stop: 05/21/18 20:59 Last Admin: 03/24/18 20:31 Dose: 58 unit Lisinopril (Zestril) 10 mg PO DAILY [facility] Stop: 05/21/18 08:59 Last Admin: 03/25/18 08:21 Dose: 10 mg Lorazepam (Ativan) 0.5 mg PO Q4HR PRN; Protocol PRN Reason: Anxiety Stop: 04/20/18 23:10 Magnesium Hydroxide (Milk Of Magnesia) 30 ml PO HS PRN PRN Reason: Constipation Metformin HCl (Glucophage) 1,000 mg PO BIDWM [facility] Stop: 05/21/18 07:59 Last Admin: 03/25/18 08:21 Dose: 1,000 mg Multivitamins/Vitamin C (Theragran) 1 tab PO DAILY [facility] Stop: 05/21/18 08:59 Last Admin: 03/25/18 08:22 Dose: 1 tab Mupirocin (Bactroban Oint) 1 appl NS BID [facility] Stop: 03/28/18 09:01 Last Admin: 03/25/18 08:21 Dose: 1 appl Quetiapine Fumarate (Seroquel) 25 mg PO BID [facility]; Protocol Stop: 05/21/18 08:59 Last Admin: 03/25/18 08:21 Dose: 25 mg Zolpidem Tartrate (Ambien) 5 mg PO HS PRN PRN Reason: Insomnia Stop: 05/20/18 23:10 HEENT: NC/AT, PERRLA, EOMI Neck: Supple, No JVD, No thyromegaly Lungs: CTAB Cardiovascular: RRR, Normal S1, Normal S2 Abdomen: soft, non-tender, non-distended, positive bowel sound Extremities: excoriation Neurological: no change Internal Medicine Assmt/Plan - Assessment Assessment: . Hypertension. 2. Hypercholesterolemia. 3. Diabetes. 4. Anemia. 5. Renal insufficiency. 6. Low albumin. - Plan Plan: continue with sliding scale fall precautions continue current plan of care Nutritional Asmnt/Malnutr-PDOC - Dietary Evaluation Malnutrition Findings (Please click <Entered> for more info): Nutritional Asmnt/Malnutrition Start: 03/22/18 11: 29 Text: Status: Complete Freq: Protocol: Document 03/22/18 11:30 RHAQUE (Rec: 03/22/18 11:38 RHAQUE JAYDEN) Nutritional Asmnt/Malnutrition Patient General Information Nutritional Screening High Risk Diagnosis Agitation, Combative Pertinent Medical Hx/Surgical Hx HTN, DM, Dyslipidemia, Dementia, Schizophrenia, Bipolar (Per MD's note). Also BPH, Osteoarthritis, Psychosis , Anxiety, Major Depression ( per Nurse's note) Subjective Information Pt preferred to communicate in south african when he was visited. Did not ask for extra food or snacks. Both the nurse & [employer] described him as very quiet, well behaved and introverted. Neither was certain of any B.M .'s Current Diet Order/ Nutrition Support [place] [id number] GM Patient / S.O Not Indicated Pertinent Medications Maalox, Lipitor, Docusate, Glucagon, Insulin Aspart, Insulin Detemir, MOM, Metformin HCl, Multivitamins, Ambien Pertinent Labs (03/21) Gluc 196; (03/22) POC Gluc 284 Nutritional Hx/Data Height 5 ft 8 in Height (Calculated Centimeters) 172.7 Current Weight (lbs) 165 lb Weight (Calculated Kilograms) 74.8 Weight (Calculated Grams) 91867.7 [place] Body Weight 154 % [place] Body Weight 107 Body Mass Index (BMI) 25.0 Weight Status Approriate GI Symptoms GI Symptoms None Last BM None Noted Difficult in: None Food Allergies No Cultural/Ethnic/Orthodoxy Belief None Noted Skin Integrity/Comment: No documentation available Current %PO Good (75-100%) Estimated Nutritional Goals BEE in Kcals: Adj wt of IBW Calories/Kcals/Kg 25-30 Kcals Calculated 9694-5358 Protein g/k.8-1 Protein Calculated 57-71 Fluid: ml 1856-7017 Nutritional Problem 1. Problem Problem altered Nutritional related Lab values Etiology due to inadequate medication dosage aeb Signs/Symptoms: Hyperglycemia: (03/21) Gluc 196 ; (03/22) POC Gluc 284 Malnutrition Alert Is there a minimum of two criteria No selected? Query Text:Check all the applicable criteria. A minimum of two criteria are recommended for diagnosis of either severe or non-severe malnutrition. Malnutrition Related to Morbid Obesity Malnutrition related to morbid obesity No Intervention/Recommendation Comments Recommend MD's adjustment of DM medication and continuation of [place] [address] diet. Expected Outcomes/Goals Expected Outcomes/Goals - Maintain 100% PO Intake - Gluc labs return to WNL - Monitor for constipation, no record of B.M.'s since admission - F/U in 3-5 days as
--- NOTE | 2018-03-25 20:43 | Progress Notes ---
DATE: 03/25/2018 SUBJECTIVE: The patient was seen and evaluated. The patient's chart reviewed. Covering for Dr. Jefferson. Today on [id number] evaluation, the patient has difficulty with thought blocking, also has difficulty engaging in conversation. There is a lot of word finding. He has been compliant with medications. MENTAL STATUS EXAMINATION: Still irritable, easily agitated, disengaged. ASSESSMENT AND PLAN: The patient is a 63-year-old male with a previous history of schizophrenia, tolerating the recent increase of Seroquel without complication. We will continue monitoring and evaluating and target the patient's symptoms and continue working very closely with medical assistant prn for a safe disposition when the patient is further stabilized. JOB# [id number]
[2018-03-25] MEDS: Atorvastatin Calcium 10 MG TAB PO SCH (20:58)
[2018-03-25] MEDS: Insulin Detemir 100 units/mL 10mL Vial SUBQ SCH (21:01)
[2018-03-26] MEDS: INSULIN ASPART, RECOMBINANT 100 UNITS/ML SUBQ SCH ×4 (06:30→21:22)
[2018-03-26] MEDS: Multivitamin Tab PO SCH (08:26)
--- NOTE | 2018-03-26 12:53 | Internal Medicine Prog Note ---
Internal Medicine Subjective - Subjective Patient seen and examined:: with staff, chart reviewed Patient is:: awake, verbal, interactive, in wheelchair Per staff patient has:: no adverse event, no episodes of fall, eating well, tolerating meds Internal Medicine Objective - Results Result Diagrams: 03/21/18 18:50 03/21/18 18:50 Recent Labs: Laboratory Last Values WBC 7.7 Th/cmm (4.8-10.8) 03/21/18 18:50 RBC 4.02 Mil/cmm (4.30-5.70) L 03/21/18 18:50 Hgb 12.4 gm/dL (12-16) 03/21/18 18:50 Hct 37.1 % (41.0-60) L 03/21/18 18:50 MCV 92.4 fl (80-99) 03/21/18 18:50 MCH 30.8 pg (26.0-30.0) H 03/21/18 18:50 MCHC Differential 33.4 pg (28.0-36.0) 03/21/18 18:50 RDW 13.4 % (11.5-20.0) 03/21/18 18:50 Plt Count 285 Th/cmm (150-400) 03/21/18 18:50 MPV 9.4 fl 03/21/18 18:50 Neutrophils % 44.4 % (40.0-80.0) 03/21/18 18:50 Lymphocytes % 45.2 % (20.0-50.0) 03/21/18 18:50 Monocytes % 8.4 % (2.0-10.0) 03/21/18 18:50 Eosinophils % 1.4 % (0.0-5.0) 03/21/18 18:50 Basophils % 0.6 % (0.0-2.0) 03/21/18 18:50 Sodium 137 mEq/L (136-145) 03/21/18 18:50 Potassium 4.6 mEq/L (3.5-5.1) 03/21/18 18:50 Chloride 105 mEq/L (98-107) 03/21/18 18:50 Carbon Dioxide 23.0 mEq/L (21.0-31.0) 03/21/18 18:50 Anion Gap 13.6 (7.0-16.0) 03/21/18 18:50 BUN 28 mg/dL (7-25) H 03/21/18 18:50 Creatinine 1.1 mg/dL (0.7-1.3) 03/21/18 18:50 Est GFR ( Amer) > 60.0 ml/min (>90) 03/21/18 18:50 Est GFR (Non-Af Amer) > 60.0 ml/min 03/21/18 18:50 BUN/Creatinine Ratio 25.5 03/21/18 18:50 Glucose 196 mg/dL (70-105) H 03/21/18 18:50 POC Glucose 169 MG/DL (70 - 105) H 03/26/18 11:23 Calcium 10.1 mg/dL (8.6-10.3) 03/21/18 18:50 Total Bilirubin 0.3 mg/dL (0.3-1.0) 03/21/18 18:50 AST 10 U/L (13-39) L 03/21/18 18:50 ALT 10 U/L (7-52) 03/21/18 18:50 Alkaline Phosphatase 67 U/L (34-104) 03/21/18 18:50 Troponin I < 0.01 ng/mL (0.01-0.05) L 03/21/18 18:50 Total Protein 6.6 gm/dL (6.0-8.3) 03/21/18 18:50 Albumin 3.9 gm/dL (4.2-5.5) L 03/21/18 18:50 Globulin 2.7 gm/dL 03/21/18 18:50 Albumin/Globulin Ratio 1.4 (1.0-1.8) 03/21/18 18:50 Triglycerides 145 mg/dL (<150) 03/21/18 18:50 Cholesterol 152 mg/dL (<200) 03/21/18 18:50 LDL Cholesterol Direct 95 mg/dL (75-193) 03/21/18 18:50 HDL Cholesterol 30 mg/dL (23-92) 03/21/18 18:50 TSH 1.32 uIU/ml (0.34-5.60) 03/21/18 18:50 Salicylates < 25.0 mg/L (30.0-100.0) L 03/21/18 18:50 Acetaminophen < 10.0 ug/mL (10.0-30.0) L 03/21/18 18:50 Ethyl Alcohol < 10 mg/dL (0-10) 03/21/18 18:50 RPR NONREACTIVE (NONREACTIVE) 03/21/18 18:50 - Physical Exam Vitals and I&O: Vital Signs Temp 97.5 F 03/26/18 06:49 Pulse 116 03/26/18 08:26 Resp 20 03/26/18 06:49 BP 126/97 03/26/18 08:26 Pulse Ox 99 03/26/18 06:49 Intake & Output 03/25/18 03/26/18 03/26/18 18:59 06:59 18:59 Intake Total 1000 240 Balance 1000 240 Weight (lbs) 74.843 kg Intake: Oral 1000 240 Other: # Voids 4 3 # Bowel Movements 2 0 Weight Source Bedscale Active Medications: Current Medications Acetaminophen (Tylenol) 650 mg PO Q4H PRN PRN Reason: Pain Or Fever above 101 Stop: 05/20/18 23:48 Al Hydrox/Mg Hydrox/Simethicone (Maalox) 30 ml PO Q4HR PRN PRN Reason: GI DISTRESS Stop: 05/20/18 23:10 Amlodipine Besylate (Norvasc) 5 mg PO DAILY [facility] Stop: 05/21/18 08:59 Last Admin: 03/26/18 08:26 Dose: 5 mg Atorvastatin Calcium (Lipitor) 10 mg PO HS [facility] Stop: 05/21/18 20:59 Last Admin: 03/25/18 20:58 Dose: 10 mg Docusate Sodium (Colace) 100 mg PO DAILY [facility] Stop: 05/21/18 08:59 Last Admin: 03/26/18 08:26 Dose: 100 mg Glucagon (Glucagen) 1 mg IM DAILY PRN PRN Reason: High Sugar Levels Stop: 05/21/18 08:58 Insulin Aspart (Novolog) 0 units SUBQ [facility]; Protocol Stop: 05/21/18 07:29 Last Admin: 03/26/18 11:29 Dose: Not Given Insulin Detemir (Levemir Insulin) 40 units SUBQ HS [facility] Stop: 05/24/18 20:59 Last Admin: 03/25/18 21:01 Dose: 40 units Lisinopril (Zestril) 10 mg PO DAILY [facility] Stop: 05/21/18 08:59 Last Admin: 03/26/18 08:25 Dose: 10 mg Lorazepam (Ativan) 0.5 mg PO Q4HR PRN; Protocol PRN Reason: Anxiety Stop: 04/20/18 23:10 Magnesium Hydroxide (Milk Of Magnesia) 30 ml PO HS PRN PRN Reason: Constipation Metformin HCl (Glucophage) 1,000 mg PO BIDWM [facility] Stop: 05/21/18 07:59 Last Admin: 03/26/18 08:26 Dose: 1,000 mg Multivitamins/Vitamin C (Theragran) 1 tab PO DAILY [facility] Stop: 05/21/18 08:59 Last Admin: 03/26/18 08:26 Dose: 1 tab Mupirocin (Bactroban Oint) 1 appl NS BID [facility] Stop: 03/28/18 09:01 Last Admin: 03/26/18 08:25 Dose: 1 appl Quetiapine Fumarate (Seroquel) 25 mg PO BID [facility]; Protocol Stop: 05/21/18 08:59 Last Admin: 03/26/18 08:26 Dose: 25 mg Zolpidem Tartrate (Ambien) 5 mg PO HS PRN PRN Reason: Insomnia Stop: 05/20/18 23:10 HEENT: NC/AT, PERRLA, EOMI Neck: Supple, No JVD, No thyromegaly Lungs: CTAB Cardiovascular: RRR, Normal S1, Normal S2 Abdomen: soft, non-tender, non-distended, positive bowel sound Extremities: excoriation Neurological: no change Internal Medicine Assmt/Plan - Assessment Assessment: ASSESSMENT: 1. Hypertension. 2. Hypercholesterolemia. 3. Diabetes. 4. Anemia. 5. Renal insufficiency. 6. Low albumin. - Plan Plan: PLAN: We will continue the patient on IV insulin sliding scale. We will monitor for any signs and symptoms of hypoglycemia. Continue blood pressure medication. Continue psychiatric medication. Continue with current care Nutritional Asmnt/Malnutr-PDOC - Dietary Evaluation Malnutrition Findings (Please click <Entered> for more info): Nutritional Asmnt/Malnutrition Start: 03/22/18 11: 29 Text: Status: Complete Freq: Protocol: Document 03/22/18 11:30 RHAQUE (Rec: 03/22/18 11:38 LIEN CARPENTER) Nutritional Asmnt/Malnutrition Patient General Information Nutritional Screening High Risk Diagnosis Agitation, Combative Pertinent Medical Hx/Surgical Hx HTN, DM, Dyslipidemia, Dementia, Schizophrenia, Bipolar (Per MD's note). Also BPH, Osteoarthritis, Psychosis , Anxiety, Major Depression ( per Nurse's note) Subjective Information Pt preferred to communicate in [place] when he was visited. Did not ask for extra food or snacks. Both the nurse & LEVEE SUPERINTENDENT described him as very quiet, well behaved and introverted. Neither was certain of any B.M .'s Current Diet Order/ Nutrition Support [facility]-45 GM Patient / S.O Not Indicated Pertinent Medications Maalox, Lipitor, Docusate, Glucagon, Insulin Aspart, Insulin Detemir, MOM, Metformin HCl, Multivitamins, Ambien Pertinent Labs (03/21) Gluc 196; (03/22) POC Gluc 284 Nutritional Hx/Data Height 1.73 m Height (Calculated Centimeters) 172.7 Current Weight (lbs) 74.843 kg Weight (Calculated Kilograms) 74.8 Weight (Calculated Grams) 22071.7 [place] Body Weight 154 % [place] Body Weight 107 Body Mass Index (BMI) 25.0 Weight Status Approriate GI Symptoms GI Symptoms None Last BM None Noted Difficult in: None Food Allergies No Cultural/Ethnic/Islam Belief None Noted Skin Integrity/Comment: No documentation available Current %PO Good (75-100%) Estimated Nutritional Goals BEE in Kcals: Adj wt of IBW Calories/Kcals/Kg 25-30 Kcals Calculated 6174-2094 Protein g/k.8-1 Protein Calculated 57-71 Fluid: ml 4344-4590 Nutritional Problem 1. Problem Problem altered Nutritional related Lab values Etiology due to inadequate medication dosage aeb Signs/Symptoms: Hyperglycemia: (03/21) Gluc 196 ; (03/22) POC Gluc 284 Malnutrition Alert Is there a minimum of two criteria No selected? Query Text:Check all the applicable criteria. A minimum of two criteria are recommended for diagnosis of either severe or non-severe malnutrition. Malnutrition Related to Morbid Obesity Malnutrition related to morbid obesity No Intervention/Recommendation Comments Recommend MD's adjustment of DM medication and continuation of [facility]-45 diet. Expected Outcomes/Goals Expected Outcomes/Goals - Maintain 100% PO Intake - Gluc labs return to WNL - Monitor for constipation, no record of B.M.'s since admission - F/U in 3-5 days as MR
[2018-03-26] MEDS: Atorvastatin Calcium 10 MG TAB PO SCH (21:21)
[2018-03-26] MEDS: Insulin Detemir 100 units/mL 10mL Vial SUBQ SCH (21:21)
--- NOTE | 2018-03-27 05:19 | Progress Notes ---
DATE: SUBJECTIVE: Chart reviewed and the patient interviewed. Also discussed the patient's condition with the staff and reviewed records and labs. The patient is still preoccupied and is still guarded and withdrawn. The patient also is still monitored closely. He also is still disheveled and personal hygiene is poor. Otherwise, the patient is compliant with taking his medications with no side effects of medications. He is still showing improvement and no yelling and no foul language during my interview. ASSESSMENT: The patient is still psychotic. TREATMENT PLAN: Continue to monitor behavior closely and continue to follow up with placement issue. Also continue to follow up with his behavior. JOB# [id number]
[2018-03-27] MEDS: INSULIN ASPART, RECOMBINANT 100 UNITS/ML SUBQ SCH ×4 (07:17→20:57)
[2018-03-27] MEDS: Multivitamin Tab PO SCH (08:19)
--- NOTE | 2018-03-27 12:18 | Internal Medicine Prog Note ---
Internal Medicine Subjective - Subjective Patient seen and examined:: with staff, chart reviewed Patient is:: awake, verbal, interactive, in wheelchair Per staff patient has:: no adverse event, no episodes of fall, eating well, tolerating meds Internal Medicine Objective - Results Result Diagrams: 03/21/18 18:50 03/21/18 18:50 Recent Labs: Laboratory Last Values WBC 7.7 Th/cmm (4.8-10.8) 03/21/18 18:50 RBC 4.02 Mil/cmm (4.30-5.70) L 03/21/18 18:50 Hgb 12.4 gm/dL (12-16) 03/21/18 18:50 Hct 37.1 % (41.0-60) L 03/21/18 18:50 MCV 92.4 fl (80-99) 03/21/18 18:50 MCH 30.8 pg (26.0-30.0) H 03/21/18 18:50 MCHC Differential 33.4 pg (28.0-36.0) 03/21/18 18:50 RDW 13.4 % (11.5-20.0) 03/21/18 18:50 Plt Count 285 Th/cmm (150-400) 03/21/18 18:50 MPV 9.4 fl 03/21/18 18:50 Neutrophils % 44.4 % (40.0-80.0) 03/21/18 18:50 Lymphocytes % 45.2 % (20.0-50.0) 03/21/18 18:50 Monocytes % 8.4 % (2.0-10.0) 03/21/18 18:50 Eosinophils % 1.4 % (0.0-5.0) 03/21/18 18:50 Basophils % 0.6 % (0.0-2.0) 03/21/18 18:50 Sodium 137 mEq/L (136-145) 03/21/18 18:50 Potassium 4.6 mEq/L (3.5-5.1) 03/21/18 18:50 Chloride 105 mEq/L (98-107) 03/21/18 18:50 Carbon Dioxide 23.0 mEq/L (21.0-31.0) 03/21/18 18:50 Anion Gap 13.6 (7.0-16.0) 03/21/18 18:50 BUN 28 mg/dL (7-25) H 03/21/18 18:50 Creatinine 1.1 mg/dL (0.7-1.3) 03/21/18 18:50 Est GFR ( Amer) > 60.0 ml/min (>90) 03/21/18 18:50 Est GFR (Non-Af Amer) > 60.0 ml/min 03/21/18 18:50 BUN/Creatinine Ratio 25.5 03/21/18 18:50 Glucose 196 mg/dL (70-105) H 03/21/18 18:50 POC Glucose 107 MG/DL (70 - 105) H 03/27/18 07:16 Calcium 10.1 mg/dL (8.6-10.3) 03/21/18 18:50 Total Bilirubin 0.3 mg/dL (0.3-1.0) 03/21/18 18:50 AST 10 U/L (13-39) L 03/21/18 18:50 ALT 10 U/L (7-52) 03/21/18 18:50 Alkaline Phosphatase 67 U/L (34-104) 03/21/18 18:50 Troponin I < 0.01 ng/mL (0.01-0.05) L 03/21/18 18:50 Total Protein 6.6 gm/dL (6.0-8.3) 03/21/18 18:50 Albumin 3.9 gm/dL (4.2-5.5) L 03/21/18 18:50 Globulin 2.7 gm/dL 03/21/18 18:50 Albumin/Globulin Ratio 1.4 (1.0-1.8) 03/21/18 18:50 Triglycerides 145 mg/dL (<150) 03/21/18 18:50 Cholesterol 152 mg/dL (<200) 03/21/18 18:50 LDL Cholesterol Direct 95 mg/dL (75-193) 03/21/18 18:50 HDL Cholesterol 30 mg/dL (23-92) 03/21/18 18:50 TSH 1.32 uIU/ml (0.34-5.60) 03/21/18 18:50 Salicylates < 25.0 mg/L (30.0-100.0) L 03/21/18 18:50 Acetaminophen < 10.0 ug/mL (10.0-30.0) L 03/21/18 18:50 Ethyl Alcohol < 10 mg/dL (0-10) 03/21/18 18:50 RPR NONREACTIVE (NONREACTIVE) 03/21/18 18:50 - Physical Exam Vitals and I&O: Vital Signs Temp 97.2 F 03/27/18 06:28 Pulse 99 03/27/18 08:21 Resp 20 03/27/18 06:28 BP 129/78 03/27/18 08:21 Pulse Ox 100 03/27/18 06:28 Intake & Output 03/26/18 03/27/18 03/27/18 18:59 06:59 18:59 Intake Total 900 300 Balance 900 300 Weight (lbs) 74.843 kg Intake: Oral 900 300 Other: # Voids 4 1 # Bowel Movements 1 0 Weight Source Bedscale Active Medications: Current Medications Acetaminophen (Tylenol) 650 mg PO Q4H PRN PRN Reason: Pain Or Fever above 101 Stop: 05/20/18 23:48 Al Hydrox/Mg Hydrox/Simethicone (Maalox) 30 ml PO Q4HR PRN PRN Reason: GI DISTRESS Stop: 05/20/18 23:10 Last Admin: 03/26/18 17:23 Dose: 30 ml Amlodipine Besylate (Norvasc) 5 mg PO DAILY [facility] Stop: 05/21/18 08:59 Last Admin: 03/27/18 08:20 Dose: 5 mg Atorvastatin Calcium (Lipitor) 10 mg PO [facility] Stop: 05/21/18 20:59 Last Admin: 03/26/18 21:21 Dose: 10 mg Docusate Sodium (Colace) 100 mg PO DAILY [facility] Stop: 05/21/18 08:59 Last Admin: 03/27/18 08:21 Dose: 100 mg Glucagon (Glucagen) 1 mg IM DAILY PRN PRN Reason: High Sugar Levels Stop: 05/21/18 08:58 Insulin Aspart (Novolog) 0 units SUBQ [facility]; Protocol Stop: 05/21/18 07:29 Last Admin: 03/27/18 11:44 Dose: Not Given Insulin Detemir (Levemir Insulin) 40 units SUBQ [facility] Stop: 05/24/18 20:59 Last Admin: 03/26/18 21:21 Dose: 40 units Lisinopril (Zestril) 10 mg PO DAILY [facility] Stop: 05/21/18 08:59 Last Admin: 03/27/18 08:21 Dose: 10 mg Lorazepam (Ativan) 0.5 mg PO Q4HR PRN; Protocol PRN Reason: Anxiety Stop: 04/20/18 23:10 Magnesium Hydroxide (Milk Of Magnesia) 30 ml PO HS PRN PRN Reason: Constipation Metformin HCl (Glucophage) 1,000 mg PO BIDWM [facility] Stop: 05/21/18 07:59 Last Admin: 03/27/18 08:19 Dose: 1,000 mg Multivitamins/Vitamin C (Theragran) 1 tab PO DAILY [facility] Stop: 05/21/18 08:59 Last Admin: 03/27/18 08:19 Dose: 1 tab Mupirocin (Bactroban Oint) 1 appl NS BID [facility] Stop: 03/28/18 09:01 Last Admin: 03/27/18 08:21 Dose: 1 appl Quetiapine Fumarate (Seroquel) 25 mg PO BID [facility]; Protocol Stop: 05/21/18 08:59 Last Admin: 03/27/18 08:19 Dose: 25 mg Zolpidem Tartrate (Ambien) 5 mg PO HS PRN PRN Reason: Insomnia Stop: 05/20/18 23:10 HEENT: NC/AT, PERRLA, EOMI Neck: Supple, No JVD, No thyromegaly Lungs: CTAB Cardiovascular: RRR, Normal S1, Normal S2 Abdomen: soft, non-tender, non-distended, positive bowel sound Extremities: excoriation Neurological: no change Internal Medicine Assmt/Plan - Assessment Assessment: ASSESSMENT: 1. Hypertension. 2. Hypercholesterolemia. 3. Diabetes. 4. Anemia. 5. Renal insufficiency. 6. Low albumin. - Plan Plan: PLAN: We will continue the patient on IV insulin sliding scale. We will monitor for any signs and symptoms of hypoglycemia. Continue blood pressure medication. Continue psychiatric medication. Continue with current care Nutritional Asmnt/Malnutr-PDOC - Dietary Evaluation Malnutrition Findings (Please click <Entered> for more info): Nutritional Asmnt/Malnutrition Start: 03/22/18 11: 29 Text: Status: Complete Freq: Protocol: Document 03/22/18 11:30 LIEN (Rec: 03/22/18 11:38 LIEN CARPENTER) Nutritional Asmnt/Malnutrition Patient General Information Nutritional Screening High Risk Diagnosis Agitation, Combative Pertinent Medical Hx/Surgical Hx HTN, DM, Dyslipidemia, Dementia, Schizophrenia, Bipolar (Per MD's note). Also BPH, Osteoarthritis, Psychosis , Anxiety, Major Depression ( per Nurse's note) Subjective Information Pt preferred to communicate in [place] when he was visited. Did not ask for extra food or snacks. Both the nurse & SEATING CAPTAIN described him as very quiet, well behaved and introverted. Neither was certain of any B.M .'s Current Diet Order/ Nutrition Support [facility]-45 GM Patient / S.O Not Indicated Pertinent Medications Maalox, Lipitor, Docusate, Glucagon, Insulin Aspart, Insulin Detemir, MOM, Metformin HCl, Multivitamins, Ambien Pertinent Labs (03/21) Gluc 196; (03/22) POC Gluc 284 Nutritional Hx/Data Height 1.73 m Height (Calculated Centimeters) 172.7 Current Weight (lbs) 74.843 kg Weight (Calculated Kilograms) 74.8 Weight (Calculated Grams) 32773.7 [place] Body Weight 154 % [place] Body Weight 107 Body Mass Index (BMI) 25.0 Weight Status Approriate GI Symptoms GI Symptoms None Last BM None Noted Difficult in: None Food Allergies No Cultural/Ethnic/Denominational Belief None Noted Skin Integrity/Comment: No documentation available Current %PO Good (75-100%) Estimated Nutritional Goals BEE in Kcals: Adj wt of IBW Calories/Kcals/Kg 25-30 Kcals Calculated 2688-2993 Protein g/k.8-1 Protein Calculated 57-71 Fluid: ml 8715-1926 Nutritional Problem 1. Problem Problem altered Nutritional related Lab values Etiology due to inadequate medication dosage aeb Signs/Symptoms: Hyperglycemia: (03/21) Gluc 196 ; (03/22) POC Gluc 284 Malnutrition Alert Is there a minimum of two criteria No selected? Query Text:Check all the applicable criteria. A minimum of two criteria are recommended for diagnosis of either severe or non-severe malnutrition. Malnutrition Related to Morbid Obesity Malnutrition related to morbid obesity No Intervention/Recommendation Comments Recommend MD's adjustment of DM medication and continuation of [facility]-45 diet. Expected Outcomes/Goals Expected Outcomes/Goals - Maintain 100% PO Intake - Gluc labs return to WNL - Monitor for constipation, no record of B.M.'s since admission - F/U in 3-5 days as MR
[2018-03-27] MEDS: Atorvastatin Calcium 10 MG TAB PO SCH (20:56)
[2018-03-27] MEDS: Insulin Detemir 100 units/mL 10mL Vial SUBQ SCH (20:57)
--- NOTE | 2018-03-28 00:58 | Progress Notes ---
DATE: 03/27/2018 SUBJECTIVE: Chart reviewed and the patient interviewed. Also discussed the patient's condition with the staff and reviewed records and labs. The patient is still guarded and is still interacting minimally with others and is withdrawn. Also, personal hygiene is still poor. The patient also still has episodes of yelling and screaming, but no major behavior issues of hitting or violence. ASSESSMENT: The patient is still agitated and psychotic. TREATMENT PLAN: Continue to monitor behavior and condition closely. Also, continue adjusting psychotropic medications and follow up closely. JOB# [id number]
[2018-03-28] MEDS: INSULIN ASPART, RECOMBINANT 100 UNITS/ML SUBQ SCH ×4 (06:53→20:21)
[2018-03-28] MEDS: Multivitamin Tab PO SCH (08:45)
--- NOTE | 2018-03-28 12:12 | Internal Medicine Prog Note ---
Internal Medicine Subjective - Subjective Patient seen and examined:: with staff, chart reviewed Patient is:: awake, verbal, interactive, in wheelchair Per staff patient has:: no adverse event, no episodes of fall, eating well, tolerating meds Internal Medicine Objective - Results Result Diagrams: 03/21/18 18:50 03/21/18 18:50 Recent Labs: Laboratory Last Values WBC 7.7 Th/cmm (4.8-10.8) 03/21/18 18:50 RBC 4.02 Mil/cmm (4.30-5.70) L 03/21/18 18:50 Hgb 12.4 gm/dL (12-16) 03/21/18 18:50 Hct 37.1 % (41.0-60) L 03/21/18 18:50 MCV 92.4 fl (80-99) 03/21/18 18:50 MCH 30.8 pg (26.0-30.0) H 03/21/18 18:50 MCHC Differential 33.4 pg (28.0-36.0) 03/21/18 18:50 RDW 13.4 % (11.5-20.0) 03/21/18 18:50 Plt Count 285 Th/cmm (150-400) 03/21/18 18:50 MPV 9.4 fl 03/21/18 18:50 Neutrophils % 44.4 % (40.0-80.0) 03/21/18 18:50 Lymphocytes % 45.2 % (20.0-50.0) 03/21/18 18:50 Monocytes % 8.4 % (2.0-10.0) 03/21/18 18:50 Eosinophils % 1.4 % (0.0-5.0) 03/21/18 18:50 Basophils % 0.6 % (0.0-2.0) 03/21/18 18:50 Sodium 137 mEq/L (136-145) 03/21/18 18:50 Potassium 4.6 mEq/L (3.5-5.1) 03/21/18 18:50 Chloride 105 mEq/L (98-107) 03/21/18 18:50 Carbon Dioxide 23.0 mEq/L (21.0-31.0) 03/21/18 18:50 Anion Gap 13.6 (7.0-16.0) 03/21/18 18:50 BUN 28 mg/dL (7-25) H 03/21/18 18:50 Creatinine 1.1 mg/dL (0.7-1.3) 03/21/18 18:50 Est GFR ( Amer) > 60.0 ml/min (>90) 03/21/18 18:50 Est GFR (Non-Af Amer) > 60.0 ml/min 03/21/18 18:50 BUN/Creatinine Ratio 25.5 03/21/18 18:50 Glucose 196 mg/dL (70-105) H 03/21/18 18:50 POC Glucose 96 MG/DL (70 - 105) 03/28/18 06:28 Calcium 10.1 mg/dL (8.6-10.3) 03/21/18 18:50 Total Bilirubin 0.3 mg/dL (0.3-1.0) 03/21/18 18:50 AST 10 U/L (13-39) L 03/21/18 18:50 ALT 10 U/L (7-52) 03/21/18 18:50 Alkaline Phosphatase 67 U/L (34-104) 03/21/18 18:50 Troponin I < 0.01 ng/mL (0.01-0.05) L 03/21/18 18:50 Total Protein 6.6 gm/dL (6.0-8.3) 03/21/18 18:50 Albumin 3.9 gm/dL (4.2-5.5) L 03/21/18 18:50 Globulin 2.7 gm/dL 03/21/18 18:50 Albumin/Globulin Ratio 1.4 (1.0-1.8) 03/21/18 18:50 Triglycerides 145 mg/dL (<150) 03/21/18 18:50 Cholesterol 152 mg/dL (<200) 03/21/18 18:50 LDL Cholesterol Direct 95 mg/dL (75-193) 03/21/18 18:50 HDL Cholesterol 30 mg/dL (23-92) 03/21/18 18:50 TSH 1.32 uIU/ml (0.34-5.60) 03/21/18 18:50 Salicylates < 25.0 mg/L (30.0-100.0) L 03/21/18 18:50 Acetaminophen < 10.0 ug/mL (10.0-30.0) L 03/21/18 18:50 Ethyl Alcohol < 10 mg/dL (0-10) 03/21/18 18:50 RPR NONREACTIVE (NONREACTIVE) 03/21/18 18:50 - Physical Exam Vitals and I&O: Vital Signs Temp 98.1 F 03/28/18 06:23 Pulse 98 03/28/18 06:23 Resp 20 03/28/18 06:23 BP 111/65 03/28/18 06:23 Pulse Ox 100 03/28/18 06:23 Intake & Output 03/27/18 03/28/18 03/28/18 18:59 06:59 18:59 Intake Total 360 Balance 360 Weight (lbs) 74.843 kg Intake: Oral 360 Other: # Voids 1 # Bowel Movements 0 Weight Source Bedscale Active Medications: Current Medications Acetaminophen (Tylenol) 650 mg PO Q4H PRN PRN Reason: Pain Or Fever above 101 Stop: 05/20/18 23:48 Al Hydrox/Mg Hydrox/Simethicone (Maalox) 30 ml PO Q4HR PRN PRN Reason: GI DISTRESS Stop: 05/20/18 23:10 Last Admin: 03/26/18 17:23 Dose: 30 ml Amlodipine Besylate (Norvasc) 5 mg PO DAILY [facility] Stop: 05/21/18 08:59 Last Admin: 03/28/18 08:45 Dose: Not Given Atorvastatin Calcium (Lipitor) 10 mg PO [facility] Stop: 05/21/18 20:59 Last Admin: 03/27/18 20:56 Dose: 10 mg Docusate Sodium (Colace) 100 mg PO DAILY [facility] Stop: 05/21/18 08:59 Last Admin: 03/28/18 08:45 Dose: 100 mg Glucagon (Glucagen) 1 mg IM DAILY PRN PRN Reason: High Sugar Levels Stop: 05/21/18 08:58 Insulin Aspart (Novolog) 0 units SUBQ [facility]; Protocol Stop: 05/21/18 07:29 Last Admin: 03/28/18 11:35 Dose: Not Given Insulin Detemir (Levemir Insulin) 40 units SUBQ [facility] Stop: 05/24/18 20:59 Last Admin: 03/27/18 20:57 Dose: 40 units Lisinopril (Zestril) 10 mg PO DAILY [facility] Stop: 05/21/18 08:59 Last Admin: 03/28/18 08:46 Dose: Not Given Lorazepam (Ativan) 0.5 mg PO Q4HR PRN; Protocol PRN Reason: Anxiety Stop: 04/20/18 23:10 Magnesium Hydroxide (Milk Of Magnesia) 30 ml PO HS PRN PRN Reason: Constipation Metformin HCl (Glucophage) 1,000 mg PO BIDWM [facility] Stop: 05/21/18 07:59 Last Admin: 03/28/18 08:45 Dose: 1,000 mg Multivitamins/Vitamin C (Theragran) 1 tab PO DAILY [facility] Stop: 05/21/18 08:59 Last Admin: 03/28/18 08:45 Dose: 1 tab Quetiapine Fumarate (Seroquel) 25 mg PO BID [facility]; Protocol Stop: 05/21/18 08:59 Last Admin: 03/28/18 08:45 Dose: 25 mg Zolpidem Tartrate (Ambien) 5 mg PO HS PRN PRN Reason: Insomnia Stop: 05/20/18 23:10 HEENT: NC/AT, PERRLA, EOMI Neck: Supple, No JVD, No thyromegaly Lungs: CTAB Cardiovascular: RRR, Normal S1, Normal S2 Abdomen: soft, non-tender, non-distended, positive bowel sound Extremities: excoriation Neurological: no change Internal Medicine Assmt/Plan - Assessment Assessment: ASSESSMENT: 1. Hypertension. 2. Hypercholesterolemia. 3. Diabetes. 4. Anemia. 5. Renal insufficiency. 6. Low albumin. - Plan Plan: PLAN: We will continue the patient on IV insulin sliding scale. We will monitor for any signs and symptoms of hypoglycemia. Continue blood pressure medication. Continue psychiatric medication. Continue with current care Nutritional Asmnt/Malnutr-PDOC - Dietary Evaluation Malnutrition Findings (Please click <Entered> for more info): Nutritional Asmnt/Malnutrition Start: 03/22/18 11: 29 Text: Status: Complete Freq: Protocol: Document 03/22/18 11:30 RHAQUE (Rec: 03/22/18 11:38 RHAQUE JAYDEN) Nutritional Asmnt/Malnutrition Patient General Information Nutritional Screening High Risk Diagnosis Agitation, Combative Pertinent Medical Hx/Surgical Hx HTN, DM, Dyslipidemia, Dementia, Schizophrenia, Bipolar (Per MD's note). Also BPH, Osteoarthritis, Psychosis , Anxiety, Major Depression ( per Nurse's note) Subjective Information Pt preferred to communicate in portuguese when he was visited. Did not ask for extra food or snacks. Both the nurse & CHARACTER IMPERSONATOR described him as very quiet, well behaved and introverted. Neither was certain of any B.M .'s Current Diet Order/ Nutrition Support [place] [address] GM Patient / S.O Not Indicated Pertinent Medications Maalox, Lipitor, Docusate, Glucagon, Insulin Aspart, Insulin Detemir, MOM, Metformin HCl, Multivitamins, Ambien Pertinent Labs (03/21) Gluc 196; (03/22) POC Gluc 284 Nutritional Hx/Data Height 1.73 m Height (Calculated Centimeters) 172.7 Current Weight (lbs) 74.843 kg Weight (Calculated Kilograms) 74.8 Weight (Calculated Grams) 32147.7 [place] Body Weight 154 % [place] Body Weight 107 Body Mass Index (BMI) 25.0 Weight Status Approriate GI Symptoms GI Symptoms None Last BM None Noted Difficult in: None Food Allergies No Cultural/Ethnic/Restorationist Belief None Noted Skin Integrity/Comment: No documentation available Current %PO Good (75-100%) Estimated Nutritional Goals BEE in Kcals: Adj wt of IBW Calories/Kcals/Kg 25-30 Kcals Calculated 9421-7466 Protein g/k.8-1 Protein Calculated 57-71 Fluid: ml 8769-8502 Nutritional Problem 1. Problem Problem altered Nutritional related Lab values Etiology due to inadequate medication dosage aeb Signs/Symptoms: Hyperglycemia: (03/21) Gluc 196 ; (03/22) POC Gluc 284 Malnutrition Alert Is there a minimum of two criteria No selected? Query Text:Check all the applicable criteria. A minimum of two criteria are recommended for diagnosis of either severe or non-severe malnutrition. Malnutrition Related to Morbid Obesity Malnutrition related to morbid obesity No Intervention/Recommendation Comments Recommend MD's adjustment of DM medication and continuation of [place] [address] diet. Expected Outcomes/Goals Expected Outcomes/Goals - Maintain 100% PO Intake - Gluc labs return to WNL - Monitor for constipation, no record of B.M.'s since admission - F/U in 3-5 days as
[2018-03-28] MEDS: Insulin Detemir 100 units/mL 10mL Vial SUBQ SCH (20:22)
[2018-03-28] MEDS: Atorvastatin Calcium 10 MG TAB PO SCH (20:23)
--- NOTE | 2018-03-28 21:40 | Progress Notes ---
DATE: PSYCHIATRIC PROGRESS NOTE SUBJECTIVE: Chart reviewed and the patient interviewed. Also discussed the patient's condition with the staff and reviewed records and labs. The patient continued to be unkempt. The patient also is still withdrawn and interacted minimally with others and seems to be depressed. The patient also still needs lots of redirections. Also, personal hygiene is still poor. ASSESSMENT: The patient is still considered to be gravely disabled and psychotic. TREATMENT PLAN: Continue to monitor his behavior and his condition closely. Also, continue Seroquel in a dose of 25 mg twice a day and continue to work on his confusion and agitation and followup. JOB# [id number]
[2018-03-29] MEDS: INSULIN ASPART, RECOMBINANT 100 UNITS/ML SUBQ SCH ×4 (06:33→21:28)
[2018-03-29] MEDS: Multivitamin Tab PO SCH (08:51)
--- NOTE | 2018-03-29 12:36 | Internal Medicine Prog Note ---
Internal Medicine Subjective - Subjective Patient seen and examined:: with staff, chart reviewed Patient is:: awake, verbal, interactive, in wheelchair Per staff patient has:: no adverse event, no episodes of fall, eating well, tolerating meds Internal Medicine Objective - Results Result Diagrams: 03/21/18 18:50 03/21/18 18:50 Recent Labs: Laboratory Last Values WBC 7.7 Th/cmm (4.8-10.8) 03/21/18 18:50 RBC 4.02 Mil/cmm (4.30-5.70) L 03/21/18 18:50 Hgb 12.4 gm/dL (12-16) 03/21/18 18:50 Hct 37.1 % (41.0-60) L 03/21/18 18:50 MCV 92.4 fl (80-99) 03/21/18 18:50 MCH 30.8 pg (26.0-30.0) H 03/21/18 18:50 MCHC Differential 33.4 pg (28.0-36.0) 03/21/18 18:50 RDW 13.4 % (11.5-20.0) 03/21/18 18:50 Plt Count 285 Th/cmm (150-400) 03/21/18 18:50 MPV 9.4 fl 03/21/18 18:50 Neutrophils % 44.4 % (40.0-80.0) 03/21/18 18:50 Lymphocytes % 45.2 % (20.0-50.0) 03/21/18 18:50 Monocytes % 8.4 % (2.0-10.0) 03/21/18 18:50 Eosinophils % 1.4 % (0.0-5.0) 03/21/18 18:50 Basophils % 0.6 % (0.0-2.0) 03/21/18 18:50 Sodium 137 mEq/L (136-145) 03/21/18 18:50 Potassium 4.6 mEq/L (3.5-5.1) 03/21/18 18:50 Chloride 105 mEq/L (98-107) 03/21/18 18:50 Carbon Dioxide 23.0 mEq/L (21.0-31.0) 03/21/18 18:50 Anion Gap 13.6 (7.0-16.0) 03/21/18 18:50 BUN 28 mg/dL (7-25) H 03/21/18 18:50 Creatinine 1.1 mg/dL (0.7-1.3) 03/21/18 18:50 Est GFR ( Amer) > 60.0 ml/min (>90) 03/21/18 18:50 Est GFR (Non-Af Amer) > 60.0 ml/min 03/21/18 18:50 BUN/Creatinine Ratio 25.5 03/21/18 18:50 Glucose 196 mg/dL (70-105) H 03/21/18 18:50 POC Glucose 79 MG/DL (70 - 105) 03/29/18 06:15 Calcium 10.1 mg/dL (8.6-10.3) 03/21/18 18:50 Total Bilirubin 0.3 mg/dL (0.3-1.0) 03/21/18 18:50 AST 10 U/L (13-39) L 03/21/18 18:50 ALT 10 U/L (7-52) 03/21/18 18:50 Alkaline Phosphatase 67 U/L (34-104) 03/21/18 18:50 Troponin I < 0.01 ng/mL (0.01-0.05) L 03/21/18 18:50 Total Protein 6.6 gm/dL (6.0-8.3) 03/21/18 18:50 Albumin 3.9 gm/dL (4.2-5.5) L 03/21/18 18:50 Globulin 2.7 gm/dL 03/21/18 18:50 Albumin/Globulin Ratio 1.4 (1.0-1.8) 03/21/18 18:50 Triglycerides 145 mg/dL (<150) 03/21/18 18:50 Cholesterol 152 mg/dL (<200) 03/21/18 18:50 LDL Cholesterol Direct 95 mg/dL (75-193) 03/21/18 18:50 HDL Cholesterol 30 mg/dL (23-92) 03/21/18 18:50 TSH 1.32 uIU/ml (0.34-5.60) 03/21/18 18:50 Salicylates < 25.0 mg/L (30.0-100.0) L 03/21/18 18:50 Acetaminophen < 10.0 ug/mL (10.0-30.0) L 03/21/18 18:50 Ethyl Alcohol < 10 mg/dL (0-10) 03/21/18 18:50 RPR NONREACTIVE (NONREACTIVE) 03/21/18 18:50 - Physical Exam Vitals and I&O: Vital Signs Temp 98.2 F 03/29/18 06:27 Pulse 92 03/29/18 08:51 Resp 20 03/29/18 11:31 BP 129/84 03/29/18 08:51 Pulse Ox 99 03/29/18 06:27 Intake & Output 03/28/18 03/29/18 03/29/18 18:59 06:59 18:59 Intake Total 360 Balance 360 Intake: Oral 360 Other: # Voids 2 Active Medications: Current Medications Acetaminophen (Tylenol) 650 mg PO Q4H PRN PRN Reason: Pain Or Fever above 101 Stop: 05/20/18 23:48 Al Hydrox/Mg Hydrox/Simethicone (Maalox) 30 ml PO Q4HR PRN PRN Reason: GI DISTRESS Stop: 05/20/18 23:10 Last Admin: 03/26/18 17:23 Dose: 30 ml Amlodipine Besylate (Norvasc) 5 mg PO DAILY [facility] Stop: 05/21/18 08:59 Last Admin: 03/29/18 08:50 Dose: 5 mg Atorvastatin Calcium (Lipitor) 10 mg PO [facility] Stop: 05/21/18 20:59 Last Admin: 03/28/18 20:23 Dose: 10 mg Docusate Sodium (Colace) 100 mg PO DAILY [facility] Stop: 05/21/18 08:59 Last Admin: 03/29/18 08:51 Dose: 100 mg Glucagon (Glucagen) 1 mg IM DAILY PRN PRN Reason: High Sugar Levels Stop: 05/21/18 08:58 Insulin Aspart (Novolog) 0 units SUBQ [facility]; Protocol Stop: 05/21/18 07:29 Last Admin: 03/29/18 11:30 Dose: 2 units Insulin Detemir (Levemir Insulin) 40 units SUBQ [facility] Stop: 05/24/18 20:59 Last Admin: 03/28/18 20:22 Dose: 40 units Lisinopril (Zestril) 10 mg PO DAILY [facility] Stop: 05/21/18 08:59 Last Admin: 03/29/18 08:51 Dose: 10 mg Lorazepam (Ativan) 0.5 mg PO Q4HR PRN; Protocol PRN Reason: Anxiety Stop: 04/20/18 23:10 Magnesium Hydroxide (Milk Of Magnesia) 30 ml PO HS PRN PRN Reason: Constipation Metformin HCl (Glucophage) 1,000 mg PO BIDWM [facility] Stop: 05/21/18 07:59 Last Admin: 03/29/18 08:51 Dose: 1,000 mg Multivitamins/Vitamin C (Theragran) 1 tab PO DAILY [facility] Stop: 05/21/18 08:59 Last Admin: 03/29/18 08:51 Dose: 1 tab Quetiapine Fumarate (Seroquel) 25 mg PO BID [facility]; Protocol Stop: 05/21/18 08:59 Last Admin: 03/29/18 08:51 Dose: 25 mg Zolpidem Tartrate (Ambien) 5 mg PO HS PRN PRN Reason: Insomnia Stop: 05/20/18 23:10 HEENT: NC/AT, PERRLA, EOMI Neck: Supple, No JVD, No thyromegaly Lungs: CTAB Cardiovascular: RRR, Normal S1, Normal S2 Abdomen: soft, non-tender, non-distended, positive bowel sound Extremities: excoriation Neurological: no change Internal Medicine Assmt/Plan - Assessment Assessment: ASSESSMENT: 1. Hypertension. 2. Hypercholesterolemia. 3. Diabetes. 4. Anemia. 5. Renal insufficiency. 6. Low albumin. - Plan Plan: PLAN: We will continue the patient on IV insulin sliding scale. We will monitor for any signs and symptoms of hypoglycemia. Continue blood pressure medication. Continue psychiatric medication. Continue with current care Nutritional Asmnt/Malnutr-PDOC - Dietary Evaluation Malnutrition Findings (Please click <Entered> for more info): Nutritional Asmnt/Malnutrition Start: 03/22/18 11: 29 Text: Status: Complete Freq: Protocol: Document 03/22/18 11:30 LIEN (Rec: 03/22/18 11:38 LIEN CARPENTER) Nutritional Asmnt/Malnutrition Patient General Information Nutritional Screening High Risk Diagnosis Agitation, Combative Pertinent Medical Hx/Surgical Hx HTN, DM, Dyslipidemia, Dementia, Schizophrenia, Bipolar (Per MD's note). Also BPH, Osteoarthritis, Psychosis , Anxiety, Major Depression ( per Nurse's note) Subjective Information Pt preferred to communicate in cuban when he was visited. Did not ask for extra food or snacks. Both the nurse & HOG ROOM SUPERVISOR described him as very quiet, well behaved and introverted. Neither was certain of any B.M .'s Current Diet Order/ Nutrition Support [place] [id number] GM Patient / S.O Not Indicated Pertinent Medications Maalox, Lipitor, Docusate, Glucagon, Insulin Aspart, Insulin Detemir, MOM, Metformin HCl, Multivitamins, Ambien Pertinent Labs (03/21) Gluc 196; (03/22) POC Gluc 284 Nutritional Hx/Data Height 1.73 m Height (Calculated Centimeters) 172.7 Current Weight (lbs) 74.843 kg Weight (Calculated Kilograms) 74.8 Weight (Calculated Grams) 19751.7 [place] Body Weight 154 % [place] Body Weight 107 Body Mass Index (BMI) 25.0 Weight Status Approriate GI Symptoms GI Symptoms None Last BM None Noted Difficult in: None Food Allergies No Cultural/Ethnic/Sikhism Belief None Noted Skin Integrity/Comment: No documentation available Current %PO Good (75-100%) Estimated Nutritional Goals BEE in Kcals: Adj wt of IBW Calories/Kcals/Kg 25-30 Kcals Calculated 9296-0527 Protein g/k.8-1 Protein Calculated 57-71 Fluid: ml 6158-0682 Nutritional Problem 1. Problem Problem altered Nutritional related Lab values Etiology due to inadequate medication dosage aeb Signs/Symptoms: Hyperglycemia: (03/21) Gluc 196 ; (03/22) POC Gluc 284 Malnutrition Alert Is there a minimum of two criteria No selected? Query Text:Check all the applicable criteria. A minimum of two criteria are recommended for diagnosis of either severe or non-severe malnutrition. Malnutrition Related to Morbid Obesity Malnutrition related to morbid obesity No Intervention/Recommendation Comments Recommend MD's adjustment of DM medication and continuation of [place] [address] diet. Expected Outcomes/Goals Expected Outcomes/Goals - Maintain 100% PO Intake - Gluc labs return to WNL - Monitor for constipation, no record of B.M.'s since admission - F/U in 3-5 days as
[2018-03-29] MEDS: Atorvastatin Calcium 10 MG TAB PO SCH (21:07)
[2018-03-29] MEDS: Insulin Detemir 100 units/mL 10mL Vial SUBQ SCH (21:29)
[2018-03-30] MEDS: INSULIN ASPART, RECOMBINANT 100 UNITS/ML SUBQ SCH ×4 (06:34→20:22)
[2018-03-30] MEDS: Multivitamin Tab PO SCH (09:12)
--- NOTE | 2018-03-30 12:06 | Internal Medicine Prog Note ---
Internal Medicine Subjective - Subjective Patient seen and examined:: with staff, chart reviewed Patient is:: awake, verbal, interactive, in wheelchair Per staff patient has:: no adverse event, no episodes of fall, eating well, tolerating meds Internal Medicine Objective - Results Result Diagrams: 03/21/18 18:50 03/21/18 18:50 Recent Labs: Laboratory Last Values WBC 7.7 Th/cmm (4.8-10.8) 03/21/18 18:50 RBC 4.02 Mil/cmm (4.30-5.70) L 03/21/18 18:50 Hgb 12.4 gm/dL (12-16) 03/21/18 18:50 Hct 37.1 % (41.0-60) L 03/21/18 18:50 MCV 92.4 fl (80-99) 03/21/18 18:50 MCH 30.8 pg (26.0-30.0) H 03/21/18 18:50 MCHC Differential 33.4 pg (28.0-36.0) 03/21/18 18:50 RDW 13.4 % (11.5-20.0) 03/21/18 18:50 Plt Count 285 Th/cmm (150-400) 03/21/18 18:50 MPV 9.4 fl 03/21/18 18:50 Neutrophils % 44.4 % (40.0-80.0) 03/21/18 18:50 Lymphocytes % 45.2 % (20.0-50.0) 03/21/18 18:50 Monocytes % 8.4 % (2.0-10.0) 03/21/18 18:50 Eosinophils % 1.4 % (0.0-5.0) 03/21/18 18:50 Basophils % 0.6 % (0.0-2.0) 03/21/18 18:50 Sodium 137 mEq/L (136-145) 03/21/18 18:50 Potassium 4.6 mEq/L (3.5-5.1) 03/21/18 18:50 Chloride 105 mEq/L (98-107) 03/21/18 18:50 Carbon Dioxide 23.0 mEq/L (21.0-31.0) 03/21/18 18:50 Anion Gap 13.6 (7.0-16.0) 03/21/18 18:50 BUN 28 mg/dL (7-25) H 03/21/18 18:50 Creatinine 1.1 mg/dL (0.7-1.3) 03/21/18 18:50 Est GFR ( Amer) > 60.0 ml/min (>90) 03/21/18 18:50 Est GFR (Non-Af Amer) > 60.0 ml/min 03/21/18 18:50 BUN/Creatinine Ratio 25.5 03/21/18 18:50 Glucose 196 mg/dL (70-105) H 03/21/18 18:50 POC Glucose 79 MG/DL (70 - 105) 03/29/18 06:15 Calcium 10.1 mg/dL (8.6-10.3) 03/21/18 18:50 Total Bilirubin 0.3 mg/dL (0.3-1.0) 03/21/18 18:50 AST 10 U/L (13-39) L 03/21/18 18:50 ALT 10 U/L (7-52) 03/21/18 18:50 Alkaline Phosphatase 67 U/L (34-104) 03/21/18 18:50 Troponin I < 0.01 ng/mL (0.01-0.05) L 03/21/18 18:50 Total Protein 6.6 gm/dL (6.0-8.3) 03/21/18 18:50 Albumin 3.9 gm/dL (4.2-5.5) L 03/21/18 18:50 Globulin 2.7 gm/dL 03/21/18 18:50 Albumin/Globulin Ratio 1.4 (1.0-1.8) 03/21/18 18:50 Triglycerides 145 mg/dL (<150) 03/21/18 18:50 Cholesterol 152 mg/dL (<200) 03/21/18 18:50 LDL Cholesterol Direct 95 mg/dL (75-193) 03/21/18 18:50 HDL Cholesterol 30 mg/dL (23-92) 03/21/18 18:50 TSH 1.32 uIU/ml (0.34-5.60) 03/21/18 18:50 Salicylates < 25.0 mg/L (30.0-100.0) L 03/21/18 18:50 Acetaminophen < 10.0 ug/mL (10.0-30.0) L 03/21/18 18:50 Ethyl Alcohol < 10 mg/dL (0-10) 03/21/18 18:50 RPR NONREACTIVE (NONREACTIVE) 03/21/18 18:50 - Physical Exam Vitals and I&O: Vital Signs Temp 98.1 F 03/30/18 06:30 Pulse 91 03/30/18 09:11 Resp 20 03/30/18 06:30 BP 120/76 03/30/18 09:11 Pulse Ox 98 03/30/18 06:30 Intake & Output 03/29/18 03/30/18 03/30/18 18:59 06:59 18:59 Intake Total 1000 480 Balance 1000 480 Intake: Oral 1000 480 Other: # Voids 4 1 # Bowel Movements 1 Active Medications: Current Medications Acetaminophen (Tylenol) 650 mg PO Q4H PRN PRN Reason: Pain Or Fever above 101 Stop: 05/20/18 23:48 Al Hydrox/Mg Hydrox/Simethicone (Maalox) 30 ml PO Q4HR PRN PRN Reason: GI DISTRESS Stop: 05/20/18 23:10 Last Admin: 03/26/18 17:23 Dose: 30 ml Amlodipine Besylate (Norvasc) 5 mg PO DAILY [facility] Stop: 05/21/18 08:59 Last Admin: 03/30/18 09:11 Dose: 5 mg Atorvastatin Calcium (Lipitor) 10 mg PO [facility] Stop: 05/21/18 20:59 Last Admin: 03/29/18 21:07 Dose: 10 mg Docusate Sodium (Colace) 100 mg PO DAILY [facility] Stop: 05/21/18 08:59 Last Admin: 03/30/18 09:12 Dose: 100 mg Glucagon (Glucagen) 1 mg IM DAILY PRN PRN Reason: High Sugar Levels Stop: 05/21/18 08:58 Insulin Aspart (Novolog) 0 units SUBQ [facility]; Protocol Stop: 05/21/18 07:29 Last Admin: 03/30/18 11:59 Dose: Not Given Insulin Detemir (Levemir Insulin) 40 units SUBQ HS [facility] Stop: 05/24/18 20:59 Last Admin: 03/29/18 21:29 Dose: 40 units Lisinopril (Zestril) 10 mg PO DAILY [facility] Stop: 05/21/18 08:59 Last Admin: 03/30/18 09:11 Dose: 10 mg Lorazepam (Ativan) 0.5 mg PO Q4HR PRN; Protocol PRN Reason: Anxiety Stop: 04/20/18 23:10 Magnesium Hydroxide (Milk Of Magnesia) 30 ml PO HS PRN PRN Reason: Constipation Metformin HCl (Glucophage) 1,000 mg PO BIDWM [facility] Stop: 05/21/18 07:59 Last Admin: 03/30/18 09:10 Dose: 1,000 mg Multivitamins/Vitamin C (Theragran) 1 tab PO DAILY [facility] Stop: 05/21/18 08:59 Last Admin: 03/30/18 09:12 Dose: 1 tab Quetiapine Fumarate (Seroquel) 25 mg PO BID [facility]; Protocol Stop: 05/21/18 08:59 Last Admin: 03/30/18 09:11 Dose: 25 mg Zolpidem Tartrate (Ambien) 5 mg PO HS PRN PRN Reason: Insomnia Stop: 05/20/18 23:10 HEENT: NC/AT, PERRLA, EOMI Neck: Supple, No JVD, No thyromegaly Lungs: CTAB Cardiovascular: RRR, Normal S1, Normal S2 Abdomen: soft, non-tender, non-distended, positive bowel sound Extremities: excoriation Neurological: no change Internal Medicine Assmt/Plan - Assessment Assessment: ASSESSMENT: 1. Hypertension. 2. Hypercholesterolemia. 3. Diabetes. 4. Anemia. 5. Renal insufficiency. 6. Low albumin. - Plan Plan: PLAN: We will continue the patient on IV insulin sliding scale. We will monitor for any signs and symptoms of hypoglycemia. Continue blood pressure medication. Continue psychiatric medication. Continue with current care Nutritional Asmnt/Malnutr-PDOC - Dietary Evaluation Malnutrition Findings (Please click <Entered> for more info): Nutritional Asmnt/Malnutrition Start: 03/22/18 11: 29 Text: Status: Complete Freq: Protocol: Document 03/22/18 11:30 LIEN (Rec: 03/22/18 11:38 RHGLENN CARPENTER) Nutritional Asmnt/Malnutrition Patient General Information Nutritional Screening High Risk Diagnosis Agitation, Combative Pertinent Medical Hx/Surgical Hx HTN, DM, Dyslipidemia, Dementia, Schizophrenia, Bipolar (Per MD's note). Also BPH, Osteoarthritis, Psychosis , Anxiety, Major Depression ( per Nurse's note) Subjective Information Pt preferred to communicate in guamanian when he was visited. Did not ask for extra food or snacks. Both the nurse & TRACTOR OPERATOR HELPER described him as very quiet, well behaved and introverted. Neither was certain of any B.M .'s Current Diet Order/ Nutrition Support [place] [address] GM Patient / S.O Not Indicated Pertinent Medications Maalox, Lipitor, Docusate, Glucagon, Insulin Aspart, Insulin Detemir, MOM, Metformin HCl, Multivitamins, Ambien Pertinent Labs (03/21) Gluc 196; (03/22) POC Gluc 284 Nutritional Hx/Data Height 1.73 m Height (Calculated Centimeters) 172.7 Current Weight (lbs) 74.843 kg Weight (Calculated Kilograms) 74.8 Weight (Calculated Grams) 27825.7 [place] Body Weight 154 % [place] Body Weight 107 Body Mass Index (BMI) 25.0 Weight Status Approriate GI Symptoms GI Symptoms None Last BM None Noted Difficult in: None Food Allergies No Cultural/Ethnic/Taoism Belief None Noted Skin Integrity/Comment: No documentation available Current %PO Good (75-100%) Estimated Nutritional Goals BEE in Kcals: Adj wt of IBW Calories/Kcals/Kg 25-30 Kcals Calculated 1377-7966 Protein g/k.8-1 Protein Calculated 57-71 Fluid: ml 3355-0566 Nutritional Problem 1. Problem Problem altered Nutritional related Lab values Etiology due to inadequate medication dosage aeb Signs/Symptoms: Hyperglycemia: (03/21) Gluc 196 ; (03/22) POC Gluc 284 Malnutrition Alert Is there a minimum of two criteria No selected? Query Text:Check all the applicable criteria. A minimum of two criteria are recommended for diagnosis of either severe or non-severe malnutrition. Malnutrition Related to Morbid Obesity Malnutrition related to morbid obesity No Intervention/Recommendation Comments Recommend MD's adjustment of DM medication and continuation of [place] [address] diet. Expected Outcomes/Goals Expected Outcomes/Goals - Maintain 100% PO Intake - Gluc labs return to WNL - Monitor for constipation, no record of B.M.'s since admission - F/U in 3-5 days as
[2018-03-30] MEDS: Atorvastatin Calcium 10 MG TAB PO SCH (20:22)
[2018-03-30] MEDS: Insulin Detemir 100 units/mL 10mL Vial SUBQ SCH (20:23)
[2018-03-31] MEDS: INSULIN ASPART, RECOMBINANT 100 UNITS/ML SUBQ SCH ×4 (06:32→20:59)
[2018-03-31] MEDS: Multivitamin Tab PO SCH (08:42)
--- NOTE | 2018-03-31 10:13 | Internal Medicine Prog Note ---
Internal Medicine Subjective - Subjective Patient seen and examined:: with staff, chart reviewed Patient is:: awake, verbal, interactive, in wheelchair Per staff patient has:: no adverse event, no episodes of fall, eating well, tolerating meds Internal Medicine Objective - Results Result Diagrams: 03/21/18 18:50 03/21/18 18:50 Recent Labs: Laboratory Last Values WBC 7.7 Th/cmm (4.8-10.8) 03/21/18 18:50 RBC 4.02 Mil/cmm (4.30-5.70) L 03/21/18 18:50 Hgb 12.4 gm/dL (12-16) 03/21/18 18:50 Hct 37.1 % (41.0-60) L 03/21/18 18:50 MCV 92.4 fl (80-99) 03/21/18 18:50 MCH 30.8 pg (26.0-30.0) H 03/21/18 18:50 MCHC Differential 33.4 pg (28.0-36.0) 03/21/18 18:50 RDW 13.4 % (11.5-20.0) 03/21/18 18:50 Plt Count 285 Th/cmm (150-400) 03/21/18 18:50 MPV 9.4 fl 03/21/18 18:50 Neutrophils % 44.4 % (40.0-80.0) 03/21/18 18:50 Lymphocytes % 45.2 % (20.0-50.0) 03/21/18 18:50 Monocytes % 8.4 % (2.0-10.0) 03/21/18 18:50 Eosinophils % 1.4 % (0.0-5.0) 03/21/18 18:50 Basophils % 0.6 % (0.0-2.0) 03/21/18 18:50 Sodium 137 mEq/L (136-145) 03/21/18 18:50 Potassium 4.6 mEq/L (3.5-5.1) 03/21/18 18:50 Chloride 105 mEq/L (98-107) 03/21/18 18:50 Carbon Dioxide 23.0 mEq/L (21.0-31.0) 03/21/18 18:50 Anion Gap 13.6 (7.0-16.0) 03/21/18 18:50 BUN 28 mg/dL (7-25) H 03/21/18 18:50 Creatinine 1.1 mg/dL (0.7-1.3) 03/21/18 18:50 Est GFR ( Amer) > 60.0 ml/min (>90) 03/21/18 18:50 Est GFR (Non-Af Amer) > 60.0 ml/min 03/21/18 18:50 BUN/Creatinine Ratio 25.5 03/21/18 18:50 Glucose 196 mg/dL (70-105) H 03/21/18 18:50 POC Glucose 79 MG/DL (70 - 105) 03/29/18 06:15 Calcium 10.1 mg/dL (8.6-10.3) 03/21/18 18:50 Total Bilirubin 0.3 mg/dL (0.3-1.0) 03/21/18 18:50 AST 10 U/L (13-39) L 03/21/18 18:50 ALT 10 U/L (7-52) 03/21/18 18:50 Alkaline Phosphatase 67 U/L (34-104) 03/21/18 18:50 Troponin I < 0.01 ng/mL (0.01-0.05) L 03/21/18 18:50 Total Protein 6.6 gm/dL (6.0-8.3) 03/21/18 18:50 Albumin 3.9 gm/dL (4.2-5.5) L 03/21/18 18:50 Globulin 2.7 gm/dL 03/21/18 18:50 Albumin/Globulin Ratio 1.4 (1.0-1.8) 03/21/18 18:50 Triglycerides 145 mg/dL (<150) 03/21/18 18:50 Cholesterol 152 mg/dL (<200) 03/21/18 18:50 LDL Cholesterol Direct 95 mg/dL (75-193) 03/21/18 18:50 HDL Cholesterol 30 mg/dL (23-92) 03/21/18 18:50 TSH 1.32 uIU/ml (0.34-5.60) 03/21/18 18:50 Salicylates < 25.0 mg/L (30.0-100.0) L 03/21/18 18:50 Acetaminophen < 10.0 ug/mL (10.0-30.0) L 03/21/18 18:50 Ethyl Alcohol < 10 mg/dL (0-10) 03/21/18 18:50 RPR NONREACTIVE (NONREACTIVE) 03/21/18 18:50 - Physical Exam Vitals and I&O: Vital Signs Temp 98.0 F 03/31/18 05:28 Pulse 84 03/31/18 08:42 Resp 20 03/31/18 05:28 BP 117/65 03/31/18 08:42 Pulse Ox 97 03/31/18 05:28 Intake & Output 03/30/18 03/31/18 03/31/18 18:59 06:59 18:59 Intake Total 1000 120 Balance 1000 120 Intake: Oral 1000 120 Other: # Voids 4 1 # Bowel Movements 1 0 Active Medications: Current Medications Acetaminophen (Tylenol) 650 mg PO Q4H PRN PRN Reason: Pain Or Fever above 101 Stop: 05/20/18 23:48 Al Hydrox/Mg Hydrox/Simethicone (Maalox) 30 ml PO Q4HR PRN PRN Reason: GI DISTRESS Stop: 05/20/18 23:10 Last Admin: 03/26/18 17:23 Dose: 30 ml Amlodipine Besylate (Norvasc) 5 mg PO DAILY [facility] Stop: 05/21/18 08:59 Last Admin: 03/31/18 08:38 Dose: 5 mg Atorvastatin Calcium (Lipitor) 10 mg PO [facility] Stop: 05/21/18 20:59 Last Admin: 03/30/18 20:22 Dose: 10 mg Docusate Sodium (Colace) 100 mg PO DAILY [facility] Stop: 05/21/18 08:59 Last Admin: 03/31/18 08:38 Dose: 100 mg Glucagon (Glucagen) 1 mg IM DAILY PRN PRN Reason: High Sugar Levels Stop: 05/21/18 08:58 Insulin Aspart (Novolog) [address] [facility]; Protocol Stop: 05/21/18 07:29 Last Admin: 03/31/18 06:32 Dose: Not Given Insulin Detemir (Levemir Insulin) 40 units SUBQ HS [facility] Stop: 05/24/18 20:59 Last Admin: 03/30/18 20:23 Dose: 40 units Lisinopril (Zestril) 10 mg PO DAILY [facility] Stop: 05/21/18 08:59 Last Admin: 03/31/18 08:42 Dose: 10 mg Lorazepam (Ativan) 0.5 mg PO Q4HR PRN; Protocol PRN Reason: Anxiety Stop: 04/20/18 23:10 Magnesium Hydroxide (Milk Of Magnesia) 30 ml PO HS PRN PRN Reason: Constipation Metformin HCl (Glucophage) 1,000 mg PO BIDWM [facility] Stop: 05/21/18 07:59 Last Admin: 03/31/18 08:00 Dose: 1,000 mg Multivitamins/Vitamin C (Theragran) 1 tab PO DAILY [facility] Stop: 05/21/18 08:59 Last Admin: 03/31/18 08:42 Dose: 1 tab Quetiapine Fumarate (Seroquel) 25 mg PO BID [facility]; Protocol Stop: 05/21/18 08:59 Last Admin: 03/31/18 08:43 Dose: 25 mg Zolpidem Tartrate (Ambien) 5 mg PO HS PRN PRN Reason: Insomnia Stop: 05/20/18 23:10 HEENT: NC/AT, PERRLA, EOMI Neck: Supple, No JVD, No thyromegaly Lungs: CTAB Cardiovascular: RRR, Normal S1, Normal S2 Abdomen: soft, non-tender, non-distended, positive bowel sound Extremities: excoriation Neurological: no change Internal Medicine Assmt/Plan - Assessment Assessment: ASSESSMENT: 1. Hypertension. 2. Hypercholesterolemia. 3. Diabetes. 4. Anemia. 5. Renal insufficiency. 6. Low albumin. - Plan Plan: PLAN: We will continue the patient on IV insulin sliding scale. We will monitor for any signs and symptoms of hypoglycemia. Continue blood pressure medication. Continue psychiatric medication. Continue with current care Nutritional Asmnt/Malnutr-PDOC - Dietary Evaluation Malnutrition Findings (Please click <Entered> for more info): Nutritional Asmnt/Malnutrition Start: 03/22/18 11: 29 Text: Status: Complete Freq: Protocol: Document 03/22/18 11:30 RHAQUE (Rec: 03/22/18 11:38 RHAQUE JAYDEN) Nutritional Asmnt/Malnutrition Patient General Information Nutritional Screening High Risk Diagnosis Agitation, Combative Pertinent Medical Hx/Surgical Hx HTN, DM, Dyslipidemia, Dementia, Schizophrenia, Bipolar (Per MD's note). Also BPH, Osteoarthritis, Psychosis , Anxiety, Major Depression ( per Nurse's note) Subjective Information Pt preferred to communicate in macedonian when he was visited. Did not ask for extra food or snacks. Both the nurse & RADIOLOGY SUPERVISOR described him as very quiet, well behaved and introverted. Neither was certain of any B.M .'s Current Diet Order/ Nutrition Support [facility] Patient / S.O Not Indicated Pertinent Medications Maalox, Lipitor, Docusate, Glucagon, Insulin Aspart, Insulin Detemir, MOM, Metformin HCl, Multivitamins, Ambien Pertinent Labs (03/21) Gluc 196; (03/22) POC Gluc 284 Nutritional Hx/Data Height 1.73 m Height (Calculated Centimeters) 172.7 Current Weight (lbs) 74.843 kg Weight (Calculated Kilograms) 74.8 Weight (Calculated Grams) 57859.7 [place] Body Weight 154 % [place] Body Weight 107 Body Mass Index (BMI) 25.0 Weight Status Approriate GI Symptoms GI Symptoms None Last BM None Noted Difficult in: None Food Allergies No Cultural/Ethnic/Jehovah'S Witness Belief None Noted Skin Integrity/Comment: No documentation available Current %PO Good (75-100%) Estimated Nutritional Goals BEE in Kcals: Adj wt of IBW Calories/Kcals/Kg 25-30 Kcals Calculated 1518-3655 Protein g/k.8-1 Protein Calculated 57-71 Fluid: ml [id number] Nutritional Problem 1. Problem Problem altered Nutritional related Lab values Etiology due to inadequate medication dosage aeb Signs/Symptoms: Hyperglycemia: (03/21) Gluc 196 ; (03/22) POC Gluc 284 Malnutrition Alert Is there a minimum of two criteria No selected? Query Text:Check all the applicable criteria. A minimum of two criteria are recommended for diagnosis of either severe or non-severe malnutrition. Malnutrition Related to Morbid Obesity Malnutrition related to morbid obesity No Intervention/Recommendation Comments Recommend MD's adjustment of DM medication and continuation of [place] [address] diet. Expected Outcomes/Goals Expected Outcomes/Goals - Maintain 100% PO Intake - Gluc labs return to WNL - Monitor for constipation, no record of B.M.'s since admission - F/U in 3-5 days as
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
[2018-03-31] MEDS: Atorvastatin Calcium 10 MG TAB PO SCH (20:59)
[2018-03-31] MEDS: Insulin Detemir 100 units/mL 10mL Vial SUBQ SCH (20:59)
[2018-04-01] MEDS: INSULIN ASPART, RECOMBINANT 100 UNITS/ML SUBQ SCH ×4 (06:32→20:35)
[2018-04-01] MEDS: Multivitamin Tab PO SCH (08:43)
--- NOTE | 2018-04-01 08:51 | Internal Medicine Prog Note ---
Internal Medicine Subjective - Subjective Patient seen and examined:: with staff, chart reviewed Patient is:: awake, verbal, interactive, in wheelchair Per staff patient has:: no adverse event, no episodes of fall, eating well, tolerating meds Internal Medicine Objective - Results Result Diagrams: 03/21/18 18:50 03/21/18 18:50 Recent Labs: Laboratory Last Values WBC 7.7 Th/cmm (4.8-10.8) 03/21/18 18:50 RBC 4.02 Mil/cmm (4.30-5.70) L 03/21/18 18:50 Hgb 12.4 gm/dL (12-16) 03/21/18 18:50 Hct 37.1 % (41.0-60) L 03/21/18 18:50 MCV 92.4 fl (80-99) 03/21/18 18:50 MCH 30.8 pg (26.0-30.0) H 03/21/18 18:50 MCHC Differential 33.4 pg (28.0-36.0) 03/21/18 18:50 RDW 13.4 % (11.5-20.0) 03/21/18 18:50 Plt Count 285 Th/cmm (150-400) 03/21/18 18:50 MPV 9.4 fl 03/21/18 18:50 Neutrophils % 44.4 % (40.0-80.0) 03/21/18 18:50 Lymphocytes % 45.2 % (20.0-50.0) 03/21/18 18:50 Monocytes % 8.4 % (2.0-10.0) 03/21/18 18:50 Eosinophils % 1.4 % (0.0-5.0) 03/21/18 18:50 Basophils % 0.6 % (0.0-2.0) 03/21/18 18:50 Sodium 137 mEq/L (136-145) 03/21/18 18:50 Potassium 4.6 mEq/L (3.5-5.1) 03/21/18 18:50 Chloride 105 mEq/L (98-107) 03/21/18 18:50 Carbon Dioxide 23.0 mEq/L (21.0-31.0) 03/21/18 18:50 Anion Gap 13.6 (7.0-16.0) 03/21/18 18:50 BUN 28 mg/dL (7-25) H 03/21/18 18:50 Creatinine 1.1 mg/dL (0.7-1.3) 03/21/18 18:50 Est GFR ( Amer) > 60.0 ml/min (>90) 03/21/18 18:50 Est GFR (Non-Af Amer) > 60.0 ml/min 03/21/18 18:50 BUN/Creatinine Ratio 25.5 03/21/18 18:50 Glucose 196 mg/dL (70-105) H 03/21/18 18:50 POC Glucose 79 MG/DL (70 - 105) 03/29/18 06:15 Calcium 10.1 mg/dL (8.6-10.3) 03/21/18 18:50 Total Bilirubin 0.3 mg/dL (0.3-1.0) 03/21/18 18:50 AST 10 U/L (13-39) L 03/21/18 18:50 ALT 10 U/L (7-52) 03/21/18 18:50 Alkaline Phosphatase 67 U/L (34-104) 03/21/18 18:50 Troponin I < 0.01 ng/mL (0.01-0.05) L 03/21/18 18:50 Total Protein 6.6 gm/dL (6.0-8.3) 03/21/18 18:50 Albumin 3.9 gm/dL (4.2-5.5) L 03/21/18 18:50 Globulin 2.7 gm/dL 03/21/18 18:50 Albumin/Globulin Ratio 1.4 (1.0-1.8) 03/21/18 18:50 Triglycerides 145 mg/dL (<150) 03/21/18 18:50 Cholesterol 152 mg/dL (<200) 03/21/18 18:50 LDL Cholesterol Direct 95 mg/dL (75-193) 03/21/18 18:50 HDL Cholesterol 30 mg/dL (23-92) 03/21/18 18:50 TSH 1.32 uIU/ml (0.34-5.60) 03/21/18 18:50 Salicylates < 25.0 mg/L (30.0-100.0) L 03/21/18 18:50 Acetaminophen < 10.0 ug/mL (10.0-30.0) L 03/21/18 18:50 Ethyl Alcohol < 10 mg/dL (0-10) 03/21/18 18:50 RPR NONREACTIVE (NONREACTIVE) 03/21/18 18:50 - Physical Exam Vitals and I&O: Vital Signs Temp 97.6 F 04/01/18 06:11 Pulse 84 04/01/18 06:11 Resp 19 04/01/18 06:11 BP 128/78 04/01/18 06:11 Pulse Ox 100 04/01/18 06:11 Intake & Output 03/31/18 04/01/18 04/01/18 18:59 06:59 18:59 Intake Total 800 120 Balance 800 120 Intake: Oral 800 120 Other: # Voids 3 3 # Bowel Movements 1 Active Medications: Current Medications Acetaminophen (Tylenol) 650 mg PO Q4H PRN PRN Reason: Pain Or Fever above 101 Stop: 05/20/18 23:48 Al Hydrox/Mg Hydrox/Simethicone (Maalox) 30 ml PO Q4HR PRN PRN Reason: GI DISTRESS Stop: 05/20/18 23:10 Last Admin: 03/26/18 17:23 Dose: 30 ml Amlodipine Besylate (Norvasc) 5 mg PO DAILY [facility] Stop: 05/21/18 08:59 Last Admin: 04/01/18 08:44 Dose: Not Given Atorvastatin Calcium (Lipitor) 10 mg PO [facility] Stop: 05/21/18 20:59 Last Admin: 03/31/18 20:59 Dose: 10 mg Docusate Sodium (Colace) 100 mg PO DAILY [facility] Stop: 05/21/18 08:59 Last Admin: 04/01/18 08:44 Dose: 100 mg Glucagon (Glucagen) 1 mg IM DAILY PRN PRN Reason: High Sugar Levels Stop: 05/21/18 08:58 Insulin Aspart (Novolog) 0 units SUBQ [facility]; Protocol Stop: 05/21/18 07:29 Last Admin: 04/01/18 06:32 Dose: Not Given Insulin Detemir (Levemir Insulin) 40 units SUBQ HS [facility] Stop: 05/24/18 20:59 Last Admin: 03/31/18 20:59 Dose: 40 units Lisinopril (Zestril) 10 mg PO DAILY [facility] Stop: 05/21/18 08:59 Last Admin: 04/01/18 08:44 Dose: Not Given Lorazepam (Ativan) 0.5 mg PO Q4HR PRN; Protocol PRN Reason: Anxiety Stop: 04/20/18 23:10 Magnesium Hydroxide (Milk Of Magnesia) 30 ml PO HS PRN PRN Reason: Constipation Metformin HCl (Glucophage) 1,000 mg PO BIDWM [facility] Stop: 05/21/18 07:59 Last Admin: 04/01/18 08:43 Dose: 1,000 mg Multivitamins/Vitamin C (Theragran) 1 tab PO DAILY [facility] Stop: 05/21/18 08:59 Last Admin: 04/01/18 08:43 Dose: 1 tab Quetiapine Fumarate (Seroquel) 25 mg PO BID [facility]; Protocol Stop: 05/21/18 08:59 Last Admin: 04/01/18 08:43 Dose: 25 mg Zolpidem Tartrate (Ambien) 5 mg PO HS PRN PRN Reason: Insomnia Stop: 05/20/18 23:10 HEENT: NC/AT, PERRLA, EOMI Neck: Supple, No JVD, No thyromegaly Lungs: CTAB Cardiovascular: RRR, Normal S1, Normal S2 Abdomen: soft, non-tender, non-distended, positive bowel sound Extremities: excoriation Neurological: no change Internal Medicine Assmt/Plan - Assessment Assessment: ASSESSMENT: 1. Hypertension. 2. Hypercholesterolemia. 3. Diabetes. 4. Anemia. 5. Renal insufficiency. 6. Low albumin. - Plan Plan: PLAN: We will continue the patient on IV insulin sliding scale. We will monitor for any signs and symptoms of hypoglycemia. Continue blood pressure medication. Continue psychiatric medication. Continue with current care Nutritional Asmnt/Malnutr-PDOC - Dietary Evaluation Malnutrition Findings (Please click <Entered> for more info): Nutritional Asmnt/Malnutrition Start: 03/22/18 11: 29 Text: Status: Complete Freq: Protocol: Document 03/22/18 11:30 LIEN (Rec: 03/22/18 11:38 RHAQBILL CARPENTER) Nutritional Asmnt/Malnutrition Patient General Information Nutritional Screening High Risk Diagnosis Agitation, Combative Pertinent Medical Hx/Surgical Hx HTN, DM, Dyslipidemia, Dementia, Schizophrenia, Bipolar (Per MD's note). Also BPH, Osteoarthritis, Psychosis , Anxiety, Major Depression ( per Nurse's note) Subjective Information Pt preferred to communicate in french when he was visited. Did not ask for extra food or snacks. Both the nurse & [employer] described him as very quiet, well behaved and introverted. Neither was certain of any B.M .'s Current Diet Order/ Nutrition Support [place] [id number] GM Patient / S.O Not Indicated Pertinent Medications Maalox, Lipitor, Docusate, Glucagon, Insulin Aspart, Insulin Detemir, MOM, Metformin HCl, Multivitamins, Ambien Pertinent Labs (03/21) Gluc 196; (03/22) POC Gluc 284 Nutritional Hx/Data Height 1.73 m Height (Calculated Centimeters) 172.7 Current Weight (lbs) 74.843 kg Weight (Calculated Kilograms) 74.8 Weight (Calculated Grams) 96937.7 [place] Body Weight 154 % [place] Body Weight 107 Body Mass Index (BMI) 25.0 Weight Status Approriate GI Symptoms GI Symptoms None Last BM None Noted Difficult in: None Food Allergies No Cultural/Ethnic/Sikh Belief None Noted Skin Integrity/Comment: No documentation available Current %PO Good (75-100%) Estimated Nutritional Goals BEE in Kcals: Adj wt of IBW Calories/Kcals/Kg 25-30 Kcals Calculated 4034-9810 Protein g/k.8-1 Protein Calculated 57-71 Fluid: ml 3556-2648 Nutritional Problem 1. Problem Problem altered Nutritional related Lab values Etiology due to inadequate medication dosage aeb Signs/Symptoms: Hyperglycemia: (03/21) Gluc 196 ; (03/22) POC Gluc 284 Malnutrition Alert Is there a minimum of two criteria No selected? Query Text:Check all the applicable criteria. A minimum of two criteria are recommended for diagnosis of either severe or non-severe malnutrition. Malnutrition Related to Morbid Obesity Malnutrition related to morbid obesity No Intervention/Recommendation Comments Recommend MD's adjustment of DM medication and continuation of [place] [address] diet. Expected Outcomes/Goals Expected Outcomes/Goals - Maintain 100% PO Intake - Gluc labs return to WNL - Monitor for constipation, no record of B.M.'s since admission - F/U in 3-5 days as
--- NOTE | 2018-04-01 17:20 | Progress Notes ---
DATE: 04/01/2018 SUBJECTIVE: The patient coming in from [facility] with increased agitation, combative behaviors towards staff, paranoid, suspicious. The patient states that he wants to go back home with his "parents," has no plans of where he is going to go, mostly withdrawn, keeps to himself. Ongoing concerns about impulsivity, although he did sleep well last night, seems to be calm at this time. Remains forgetful, depressed and not really able to have any sort of meaningful conversation about where he is going to go when he leaves the hospital. He is pretty forgetful. Medications were noted. ASSESSMENT: The patient remains symptomatic, withdrawn, depressed, ongoing safety concerns. He is somewhat calmer. We are attempting to confirm placement as well. JOB# [id number]
--- NOTE | 2018-04-01 19:59 | Progress Notes ---
DATE: 03/29/2018 SUBJECTIVE: Chart reviewed and the patient interviewed. Also, discussed the patient's condition with the staff and reviewed records and labs. The patient is still depressed and is still withdrawn. The patient also is interacting minimally with others. The patient also still wants to be left alone and still feeling hopeless and helpless. Otherwise, the patient is compliant with taking his medications with no side effect of medications. ASSESSMENT: The patient is still depressed and needs close monitoring. TREATMENT PLAN: Continue monitoring his behavior and his condition closely. Also, continue adjusting psychotropic medications and work on behavioral modifications. JOB# [id number]
--- NOTE | 2018-04-01 20:02 | Progress Notes ---
DATE: 03/30/2018 SUBJECTIVE: Chart reviewed and the patient interviewed. Also, discussed the patient's condition with the staff and reviewed records and labs. The patient is less irritable and less agitated. The patient also is still in a depressed mood. The patient also is still interacting minimally with peers and with others. Otherwise, the patient is cooperative and he is compliant with taking his medications with no side effects of medications. He also seems to be less anxious but still depressed. [facility]# [id number]
[2018-04-01] MEDS: Insulin Detemir 100 units/mL 10mL Vial SUBQ SCH (20:35)
[2018-04-01] MEDS: Atorvastatin Calcium 10 MG TAB PO SCH (20:36)
[2018-04-02] MEDS: INSULIN ASPART, RECOMBINANT 100 UNITS/ML SUBQ SCH ×3 (06:38→21:04)
[2018-04-02] MEDS: Multivitamin Tab PO SCH (09:05)
--- NOTE | 2018-04-02 12:27 | Internal Medicine Prog Note ---
Internal Medicine Subjective - Subjective Patient seen and examined:: with staff, chart reviewed Patient is:: awake, verbal, interactive, in wheelchair Per staff patient has:: no adverse event, no episodes of fall, eating well, tolerating meds Internal Medicine Objective - Results Result Diagrams: 03/21/18 18:50 03/21/18 18:50 Recent Labs: Laboratory Last Values WBC 7.7 Th/cmm (4.8-10.8) 03/21/18 18:50 RBC 4.02 Mil/cmm (4.30-5.70) L 03/21/18 18:50 Hgb 12.4 gm/dL (12-16) 03/21/18 18:50 Hct 37.1 % (41.0-60) L 03/21/18 18:50 MCV 92.4 fl (80-99) 03/21/18 18:50 MCH 30.8 pg (26.0-30.0) H 03/21/18 18:50 MCHC Differential 33.4 pg (28.0-36.0) 03/21/18 18:50 RDW 13.4 % (11.5-20.0) 03/21/18 18:50 Plt Count 285 Th/cmm (150-400) 03/21/18 18:50 MPV 9.4 fl 03/21/18 18:50 Neutrophils % 44.4 % (40.0-80.0) 03/21/18 18:50 Lymphocytes % 45.2 % (20.0-50.0) 03/21/18 18:50 Monocytes % 8.4 % (2.0-10.0) 03/21/18 18:50 Eosinophils % 1.4 % (0.0-5.0) 03/21/18 18:50 Basophils % 0.6 % (0.0-2.0) 03/21/18 18:50 Sodium 137 mEq/L (136-145) 03/21/18 18:50 Potassium 4.6 mEq/L (3.5-5.1) 03/21/18 18:50 Chloride 105 mEq/L (98-107) 03/21/18 18:50 Carbon Dioxide 23.0 mEq/L (21.0-31.0) 03/21/18 18:50 Anion Gap 13.6 (7.0-16.0) 03/21/18 18:50 BUN 28 mg/dL (7-25) H 03/21/18 18:50 Creatinine 1.1 mg/dL (0.7-1.3) 03/21/18 18:50 Est GFR ( Amer) > 60.0 ml/min (>90) 03/21/18 18:50 Est GFR (Non-Af Amer) > 60.0 ml/min 03/21/18 18:50 BUN/Creatinine Ratio 25.5 03/21/18 18:50 Glucose 196 mg/dL (70-105) H 03/21/18 18:50 POC Glucose 79 MG/DL (70 - 105) 03/29/18 06:15 Calcium 10.1 mg/dL (8.6-10.3) 03/21/18 18:50 Total Bilirubin 0.3 mg/dL (0.3-1.0) 03/21/18 18:50 AST 10 U/L (13-39) L 03/21/18 18:50 ALT 10 U/L (7-52) 03/21/18 18:50 Alkaline Phosphatase 67 U/L (34-104) 03/21/18 18:50 Troponin I < 0.01 ng/mL (0.01-0.05) L 03/21/18 18:50 Total Protein 6.6 gm/dL (6.0-8.3) 03/21/18 18:50 Albumin 3.9 gm/dL (4.2-5.5) L 03/21/18 18:50 Globulin 2.7 gm/dL 03/21/18 18:50 Albumin/Globulin Ratio 1.4 (1.0-1.8) 03/21/18 18:50 Triglycerides 145 mg/dL (<150) 03/21/18 18:50 Cholesterol 152 mg/dL (<200) 03/21/18 18:50 LDL Cholesterol Direct 95 mg/dL (75-193) 03/21/18 18:50 HDL Cholesterol 30 mg/dL (23-92) 03/21/18 18:50 TSH 1.32 uIU/ml (0.34-5.60) 03/21/18 18:50 Salicylates < 25.0 mg/L (30.0-100.0) L 03/21/18 18:50 Acetaminophen < 10.0 ug/mL (10.0-30.0) L 03/21/18 18:50 Ethyl Alcohol < 10 mg/dL (0-10) 03/21/18 18:50 RPR NONREACTIVE (NONREACTIVE) 03/21/18 18:50 - Physical Exam Vitals and I&O: Vital Signs Temp 97.5 F 04/02/18 05:03 Pulse 80 04/02/18 05:03 Resp 20 04/02/18 05:03 BP 110/67 04/02/18 05:03 Pulse Ox 98 04/02/18 05:03 Intake & Output 04/01/18 04/02/18 04/02/18 18:59 06:59 18:59 Intake Total 800 240 Balance 800 240 Intake: Oral 800 240 Other: # Voids 3 2 # Bowel Movements 1 Active Medications: Current Medications Acetaminophen (Tylenol) 650 mg PO Q4H PRN PRN Reason: Pain Or Fever above 101 Stop: 05/20/18 23:48 Al Hydrox/Mg Hydrox/Simethicone (Maalox) 30 ml PO Q4HR PRN PRN Reason: GI DISTRESS Stop: 05/20/18 23:10 Last Admin: 03/26/18 17:23 Dose: 30 ml Amlodipine Besylate (Norvasc) 5 mg PO DAILY [facility] Stop: 05/21/18 08:59 Last Admin: 04/02/18 09:05 Dose: Not Given Atorvastatin Calcium (Lipitor) 10 mg PO [facility] Stop: 05/21/18 20:59 Last Admin: 04/01/18 20:36 Dose: 10 mg Docusate Sodium (Colace) 100 mg PO DAILY [facility] Stop: 05/21/18 08:59 Last Admin: 04/02/18 09:05 Dose: 100 mg Glucagon (Glucagen) 1 mg IM DAILY PRN PRN Reason: High Sugar Levels Stop: 05/21/18 08:58 Insulin Aspart (Novolog) 0 units SUBQ [facility]; Protocol Stop: 05/21/18 07:29 Last Admin: 04/02/18 06:38 Dose: Not Given Insulin Detemir (Levemir Insulin) 40 units SUBQ [facility] Stop: 05/24/18 20:59 Last Admin: 04/01/18 20:35 Dose: 40 units Lisinopril (Zestril) 10 mg PO DAILY [facility] Stop: 05/21/18 08:59 Last Admin: 04/02/18 09:05 Dose: Not Given Lorazepam (Ativan) 0.5 mg PO Q4HR PRN; Protocol PRN Reason: Anxiety Stop: 04/20/18 23:10 Magnesium Hydroxide (Milk Of Magnesia) 30 ml PO HS PRN PRN Reason: Constipation Metformin HCl (Glucophage) 1,000 mg PO BIDWM [facility] Stop: 05/21/18 07:59 Last Admin: 04/02/18 09:05 Dose: 1,000 mg Multivitamins/Vitamin C (Theragran) 1 tab PO DAILY [facility] Stop: 05/21/18 08:59 Last Admin: 04/02/18 09:05 Dose: 1 tab Quetiapine Fumarate (Seroquel) 25 mg PO BID [facility]; Protocol Stop: 05/21/18 08:59 Last Admin: 04/02/18 09:05 Dose: 25 mg Zolpidem Tartrate (Ambien) 5 mg PO HS PRN PRN Reason: Insomnia Stop: 05/20/18 23:10 HEENT: NC/AT, PERRLA, EOMI Neck: Supple, No JVD, No thyromegaly Lungs: CTAB Cardiovascular: RRR, Normal S1, Normal S2 Abdomen: soft, non-tender, non-distended, positive bowel sound Extremities: excoriation Neurological: no change Internal Medicine Assmt/Plan - Assessment Assessment: ASSESSMENT: 1. Hypertension. 2. Hypercholesterolemia. 3. Diabetes. 4. Anemia. 5. Renal insufficiency. 6. Low albumin. - Plan Plan: PLAN: We will continue the patient on IV insulin sliding scale. We will monitor for any signs and symptoms of hypoglycemia. Continue blood pressure medication. Continue psychiatric medication. Continue with current care Nutritional Asmnt/Malnutr-PDOC - Dietary Evaluation Malnutrition Findings (Please click <Entered> for more info): Nutritional Asmnt/Malnutrition Start: 03/22/18 11: 29 Text: Status: Complete Freq: Protocol: Document 03/22/18 11:30 LIEN (Rec: 03/22/18 11:38 RHGLENN CARPENTER) Nutritional Asmnt/Malnutrition Patient General Information Nutritional Screening High Risk Diagnosis Agitation, Combative Pertinent Medical Hx/Surgical Hx HTN, DM, Dyslipidemia, Dementia, Schizophrenia, Bipolar (Per MD's note). Also BPH, Osteoarthritis, Psychosis , Anxiety, Major Depression ( per Nurse's note) Subjective Information Pt preferred to communicate in faroese when he was visited. Did not ask for extra food or snacks. Both the nurse & [employer]PER[employer] described him as very quiet, well behaved and introverted. Neither was certain of any B.M .'s Current Diet Order/ Nutrition Support [place] [id number] GM Patient / S.O Not Indicated Pertinent Medications Maalox, Lipitor, Docusate, Glucagon, Insulin Aspart, Insulin Detemir, MOM, Metformin HCl, Multivitamins, Ambien Pertinent Labs (03/21) Gluc 196; (03/22) POC Gluc 284 Nutritional Hx/Data Height 1.73 m Height (Calculated Centimeters) 172.7 Current Weight (lbs) 74.843 kg Weight (Calculated Kilograms) 74.8 Weight (Calculated Grams) 07233.7 [place] Body Weight 154 % [place] Body Weight 107 Body Mass Index (BMI) 25.0 Weight Status Approriate GI Symptoms GI Symptoms None Last BM None Noted Difficult in: None Food Allergies No Cultural/Ethnic/Moravian Belief None Noted Skin Integrity/Comment: No documentation available Current %PO Good (75-100%) Estimated Nutritional Goals BEE in Kcals: Adj wt of IBW Calories/Kcals/Kg 25-30 Kcals Calculated 6139-1453 Protein g/k.8-1 Protein Calculated 57-71 Fluid: ml 8368-6544 Nutritional Problem 1. Problem Problem altered Nutritional related Lab values Etiology due to inadequate medication dosage aeb Signs/Symptoms: Hyperglycemia: (03/21) Gluc 196 ; (03/22) POC Gluc 284 Malnutrition Alert Is there a minimum of two criteria No selected? Query Text:Check all the applicable criteria. A minimum of two criteria are recommended for diagnosis of either severe or non-severe malnutrition. Malnutrition Related to Morbid Obesity Malnutrition related to morbid obesity No Intervention/Recommendation Comments Recommend MD's adjustment of DM medication and continuation of [place] [address] diet. Expected Outcomes/Goals Expected Outcomes/Goals - Maintain 100% PO Intake - Gluc labs return to WNL - Monitor for constipation, no record of B.M.'s since admission - F/U in 3-5 days as
[2018-04-02] MEDS: Atorvastatin Calcium 10 MG TAB PO SCH (20:50)
[2018-04-02] MEDS: Insulin Detemir 100 units/mL 10mL Vial SUBQ SCH (21:05)
--- NOTE | 2018-04-03 00:55 | Progress Notes ---
DATE: 04/02/2018 Case was discussed with staff of the patient, reviewed records. This is a 63-year-old male who is admitted on 03/21/2018. Transferred from [facility] because of increasing agitation, combative behavior towards staff, has been suspicious, paranoid, guarded, has been unable to sleep with a history of what seems to be schizoaffective disorder. He is also diabetic, hypertensive with osteoarthritis. He is . He has 1 son, no contact with his son. The patient continues to isolate himself. Continues to be somewhat suspicious, unpredictable, impulsive with episodes of agitation. His sleep varies. Appetite varies. He is on Seroquel 25 mg twice a day with no side effects, no sedation or nausea, no extrapyramidal symptoms. I will be increasing his Seroquel to 37.5 mg at bedtime twice a day. No side effects and we will continue outpatient group therapy, milieu therapy, and adjust the medication as needed. [facility]# [id number]
[2018-04-03] MEDS: INSULIN ASPART, RECOMBINANT 100 UNITS/ML SUBQ SCH ×4 (06:43→20:41)
[2018-04-03] MEDS: Multivitamin Tab PO SCH (09:10)
--- NOTE | 2018-04-03 11:23 | Internal Medicine Prog Note ---
Internal Medicine Subjective - Subjective Patient seen and examined:: with staff, chart reviewed Patient is:: awake, verbal, interactive, in wheelchair Per staff patient has:: no adverse event, no episodes of fall, eating well, tolerating meds Internal Medicine Objective - Results Result Diagrams: 03/21/18 18:50 03/21/18 18:50 Recent Labs: Laboratory Last Values WBC 7.7 Th/cmm (4.8-10.8) 03/21/18 18:50 RBC 4.02 Mil/cmm (4.30-5.70) L 03/21/18 18:50 Hgb 12.4 gm/dL (12-16) 03/21/18 18:50 Hct 37.1 % (41.0-60) L 03/21/18 18:50 MCV 92.4 fl (80-99) 03/21/18 18:50 MCH 30.8 pg (26.0-30.0) H 03/21/18 18:50 MCHC Differential 33.4 pg (28.0-36.0) 03/21/18 18:50 RDW 13.4 % (11.5-20.0) 03/21/18 18:50 Plt Count 285 Th/cmm (150-400) 03/21/18 18:50 MPV 9.4 fl 03/21/18 18:50 Neutrophils % 44.4 % (40.0-80.0) 03/21/18 18:50 Lymphocytes % 45.2 % (20.0-50.0) 03/21/18 18:50 Monocytes % 8.4 % (2.0-10.0) 03/21/18 18:50 Eosinophils % 1.4 % (0.0-5.0) 03/21/18 18:50 Basophils % 0.6 % (0.0-2.0) 03/21/18 18:50 Sodium 137 mEq/L (136-145) 03/21/18 18:50 Potassium 4.6 mEq/L (3.5-5.1) 03/21/18 18:50 Chloride 105 mEq/L (98-107) 03/21/18 18:50 Carbon Dioxide 23.0 mEq/L (21.0-31.0) 03/21/18 18:50 Anion Gap 13.6 (7.0-16.0) 03/21/18 18:50 BUN 28 mg/dL (7-25) H 03/21/18 18:50 Creatinine 1.1 mg/dL (0.7-1.3) 03/21/18 18:50 Est GFR ( Amer) > 60.0 ml/min (>90) 03/21/18 18:50 Est GFR (Non-Af Amer) > 60.0 ml/min 03/21/18 18:50 BUN/Creatinine Ratio 25.5 03/21/18 18:50 Glucose 196 mg/dL (70-105) H 03/21/18 18:50 POC Glucose 79 MG/DL (70 - 105) 03/29/18 06:15 Calcium 10.1 mg/dL (8.6-10.3) 03/21/18 18:50 Total Bilirubin 0.3 mg/dL (0.3-1.0) 03/21/18 18:50 AST 10 U/L (13-39) L 03/21/18 18:50 ALT 10 U/L (7-52) 03/21/18 18:50 Alkaline Phosphatase 67 U/L (34-104) 03/21/18 18:50 Troponin I < 0.01 ng/mL (0.01-0.05) L 03/21/18 18:50 Total Protein 6.6 gm/dL (6.0-8.3) 03/21/18 18:50 Albumin 3.9 gm/dL (4.2-5.5) L 03/21/18 18:50 Globulin 2.7 gm/dL 03/21/18 18:50 Albumin/Globulin Ratio 1.4 (1.0-1.8) 03/21/18 18:50 Triglycerides 145 mg/dL (<150) 03/21/18 18:50 Cholesterol 152 mg/dL (<200) 03/21/18 18:50 LDL Cholesterol Direct 95 mg/dL (75-193) 03/21/18 18:50 HDL Cholesterol 30 mg/dL (23-92) 03/21/18 18:50 TSH 1.32 uIU/ml (0.34-5.60) 03/21/18 18:50 Salicylates < 25.0 mg/L (30.0-100.0) L 03/21/18 18:50 Acetaminophen < 10.0 ug/mL (10.0-30.0) L 03/21/18 18:50 Ethyl Alcohol < 10 mg/dL (0-10) 03/21/18 18:50 RPR NONREACTIVE (NONREACTIVE) 03/21/18 18:50 - Physical Exam Vitals and I&O: Vital Signs Temp 97.8 F 04/03/18 06:36 Pulse 92 04/03/18 09:10 Resp 20 04/03/18 06:36 BP 140/86 04/03/18 09:10 Pulse Ox 99 04/03/18 06:36 Intake & Output 04/02/18 04/03/18 04/03/18 18:59 06:59 18:59 Intake Total 1600 240 Balance 1600 240 Intake: Oral 1600 240 Other: # Voids 3 2 # Bowel Movements 1 Active Medications: Current Medications Acetaminophen (Tylenol) 650 mg PO Q4H PRN PRN Reason: Pain Or Fever above 101 Stop: 05/20/18 23:48 Al Hydrox/Mg Hydrox/Simethicone (Maalox) 30 ml PO Q4HR PRN PRN Reason: GI DISTRESS Stop: 05/20/18 23:10 Last Admin: 03/26/18 17:23 Dose: 30 ml Amlodipine Besylate (Norvasc) 5 mg PO DAILY [facility] Stop: 05/21/18 08:59 Last Admin: 04/03/18 09:09 Dose: 5 mg Atorvastatin Calcium (Lipitor) 10 mg PO [facility] Stop: 05/21/18 20:59 Last Admin: 04/02/18 20:50 Dose: 10 mg Docusate Sodium (Colace) 100 mg PO DAILY [facility]CLUD[facility] Stop: 05/21/18 08:59 Last Admin: 04/03/18 09:09 Dose: 100 mg Glucagon (Glucagen) 1 mg IM DAILY PRN PRN Reason: High Sugar Levels Stop: 05/21/18 08:58 Insulin Aspart (Novolog) 0 units SUBQ [facility]; Protocol Stop: 05/21/18 07:29 Last Admin: 04/03/18 06:43 Dose: Not Given Insulin Detemir (Levemir Insulin) 40 units SUBQ HS [facility]CLUD[facility] Stop: 05/24/18 20:59 Last Admin: 04/02/18 21:05 Dose: 40 units Lisinopril (Zestril) 10 mg PO DAILY [facility] Stop: 05/21/18 08:59 Last Admin: 04/03/18 09:10 Dose: 10 mg Lorazepam (Ativan) 0.5 mg PO Q4HR PRN; Protocol PRN Reason: Anxiety Stop: 04/20/18 23:10 Magnesium Hydroxide (Milk Of Magnesia) 30 ml PO HS PRN PRN Reason: Constipation Metformin HCl (Glucophage) 1,000 mg PO BIDWM [facility] Stop: 05/21/18 07:59 Last Admin: 04/03/18 09:08 Dose: 1,000 mg Multivitamins/Vitamin C (Theragran) 1 tab PO DAILY [facility] Stop: 05/21/18 08:59 Last Admin: 04/03/18 09:10 Dose: 1 tab Quetiapine Fumarate (Seroquel) 37.5 mg PO BID [facility]; Protocol Stop: 06/01/18 16:59 Last Admin: 04/03/18 09:10 Dose: 37.5 mg Zolpidem Tartrate (Ambien) 5 mg PO HS PRN PRN Reason: Insomnia Stop: 05/20/18 23:10 HEENT: NC/AT, PERRLA, EOMI Neck: Supple, No JVD, No thyromegaly Lungs: CTAB Cardiovascular: RRR, Normal S1, Normal S2 Abdomen: soft, non-tender, non-distended, positive bowel sound Extremities: excoriation Neurological: no change Internal Medicine Assmt/Plan - Assessment Assessment: ASSESSMENT: 1. Hypertension. 2. Hypercholesterolemia. 3. Diabetes. 4. Anemia. 5. Renal insufficiency. 6. Low albumin. - Plan Plan: PLAN: We will continue the patient on IV insulin sliding scale. We will monitor for any signs and symptoms of hypoglycemia. Continue blood pressure medication. Continue psychiatric medication. Continue with current care Nutritional Asmnt/Malnutr-PDOC - Dietary Evaluation Malnutrition Findings (Please click <Entered> for more info): Nutritional Asmnt/Malnutrition Start: 03/22/18 11: 29 Text: Status: Complete Freq: Protocol: Document 03/22/18 11:30 RHAQUE (Rec: 03/22/18 11:38 RHAQUE JAYDEN) Nutritional Asmnt/Malnutrition Patient General Information Nutritional Screening High Risk Diagnosis Agitation, Combative Pertinent Medical Hx/Surgical Hx HTN, DM, Dyslipidemia, Dementia, Schizophrenia, Bipolar (Per MD's note). Also BPH, Osteoarthritis, Psychosis , Anxiety, Major Depression ( per Nurse's note) Subjective Information Pt preferred to communicate in turkish when he was visited. Did not ask for extra food or snacks. Both the nurse & GENERAL DISTILLERY WORKER described him as very quiet, well behaved and introverted. Neither was certain of any B.M .'s Current Diet Order/ Nutrition Support [place] [id number] GM Patient / S.O Not Indicated Pertinent Medications Maalox, Lipitor, Docusate, Glucagon, Insulin Aspart, Insulin Detemir, MOM, Metformin HCl, Multivitamins, Ambien Pertinent Labs (03/21) Gluc 196; (03/22) POC Gluc 284 Nutritional Hx/Data Height 1.73 m Height (Calculated Centimeters) 172.7 Current Weight (lbs) 74.843 kg Weight (Calculated Kilograms) 74.8 Weight (Calculated Grams) 50892.7 [place] Body Weight 154 % [place] Body Weight 107 Body Mass Index (BMI) 25.0 Weight Status Approriate GI Symptoms GI Symptoms None Last BM None Noted Difficult in: None Food Allergies No Cultural/Ethnic/Sabianist Belief None Noted Skin Integrity/Comment: No documentation available Current %PO Good (75-100%) Estimated Nutritional Goals BEE in Kcals: Adj wt of IBW Calories/Kcals/Kg 25-30 Kcals Calculated 5659-8078 Protein g/k.8-1 Protein Calculated 57-71 Fluid: ml 9120-8636 Nutritional Problem 1. Problem Problem altered Nutritional related Lab values Etiology due to inadequate medication dosage aeb Signs/Symptoms: Hyperglycemia: (03/21) Gluc 196 ; (03/22) POC Gluc 284 Malnutrition Alert Is there a minimum of two criteria No selected? Query Text:Check all the applicable criteria. A minimum of two criteria are recommended for diagnosis of either severe or non-severe malnutrition. Malnutrition Related to Morbid Obesity Malnutrition related to morbid obesity No Intervention/Recommendation Comments Recommend MD's adjustment of DM medication and continuation of [place] [address] diet. Expected Outcomes/Goals Expected Outcomes/Goals - Maintain 100% PO Intake - Gluc labs return to WNL - Monitor for constipation, no record of B.M.'s since admission - F/U in 3-5 days as
--- NOTE | 2018-04-03 20:12 | Progress Notes ---
DATE: 04/03/2018 SUMMARY: Case was discussed with staff of the patient and reviewed records. The patient continues to be unpredictable, impulsive, easily agitated, unable to make safe plan for his self-care. He continues to have poor insight and isolating himself. He continues to have episodes of agitation. He tolerated the increase in Seroquel that I did yesterday with no side effects, no sedation, no nausea, and no extrapyramidal symptoms. We will continue to work with the patient in group therapy, milieu therapy, and adjust the medication as needed. JOB# [id number]
[2018-04-03] MEDS: Insulin Detemir 100 units/mL 10mL Vial SUBQ SCH (20:41)
[2018-04-03] MEDS: Atorvastatin Calcium 10 MG TAB PO SCH (20:41)
[2018-04-04] MEDS: INSULIN ASPART, RECOMBINANT 100 UNITS/ML SUBQ SCH ×2 (06:47→11:22)
[2018-04-04] MEDS: Multivitamin Tab PO SCH (08:15)
--- NOTE | 2018-04-04 12:17 | Internal Medicine Prog Note ---
Internal Medicine Subjective - Subjective Patient seen and examined:: with staff, chart reviewed Patient is:: awake, verbal, interactive, in wheelchair Per staff patient has:: no adverse event, no episodes of fall, eating well, tolerating meds Internal Medicine Objective - Results Result Diagrams: 03/21/18 18:50 03/21/18 18:50 Recent Labs: Laboratory Last Values WBC 7.7 Th/cmm (4.8-10.8) 03/21/18 18:50 RBC 4.02 Mil/cmm (4.30-5.70) L 03/21/18 18:50 Hgb 12.4 gm/dL (12-16) 03/21/18 18:50 Hct 37.1 % (41.0-60) L 03/21/18 18:50 MCV 92.4 fl (80-99) 03/21/18 18:50 MCH 30.8 pg (26.0-30.0) H 03/21/18 18:50 MCHC Differential 33.4 pg (28.0-36.0) 03/21/18 18:50 RDW 13.4 % (11.5-20.0) 03/21/18 18:50 Plt Count 285 Th/cmm (150-400) 03/21/18 18:50 MPV 9.4 fl 03/21/18 18:50 Neutrophils % 44.4 % (40.0-80.0) 03/21/18 18:50 Lymphocytes % 45.2 % (20.0-50.0) 03/21/18 18:50 Monocytes % 8.4 % (2.0-10.0) 03/21/18 18:50 Eosinophils % 1.4 % (0.0-5.0) 03/21/18 18:50 Basophils % 0.6 % (0.0-2.0) 03/21/18 18:50 Sodium 137 mEq/L (136-145) 03/21/18 18:50 Potassium 4.6 mEq/L (3.5-5.1) 03/21/18 18:50 Chloride 105 mEq/L (98-107) 03/21/18 18:50 Carbon Dioxide 23.0 mEq/L (21.0-31.0) 03/21/18 18:50 Anion Gap 13.6 (7.0-16.0) 03/21/18 18:50 BUN 28 mg/dL (7-25) H 03/21/18 18:50 Creatinine 1.1 mg/dL (0.7-1.3) 03/21/18 18:50 Est GFR ( Amer) > 60.0 ml/min (>90) 03/21/18 18:50 Est GFR (Non-Af Amer) > 60.0 ml/min 03/21/18 18:50 BUN/Creatinine Ratio 25.5 03/21/18 18:50 Glucose 196 mg/dL (70-105) H 03/21/18 18:50 POC Glucose 79 MG/DL (70 - 105) 03/29/18 06:15 Calcium 10.1 mg/dL (8.6-10.3) 03/21/18 18:50 Total Bilirubin 0.3 mg/dL (0.3-1.0) 03/21/18 18:50 AST 10 U/L (13-39) L 03/21/18 18:50 ALT 10 U/L (7-52) 03/21/18 18:50 Alkaline Phosphatase 67 U/L (34-104) 03/21/18 18:50 Troponin I < 0.01 ng/mL (0.01-0.05) L 03/21/18 18:50 Total Protein 6.6 gm/dL (6.0-8.3) 03/21/18 18:50 Albumin 3.9 gm/dL (4.2-5.5) L 03/21/18 18:50 Globulin 2.7 gm/dL 03/21/18 18:50 Albumin/Globulin Ratio 1.4 (1.0-1.8) 03/21/18 18:50 Triglycerides 145 mg/dL (<150) 03/21/18 18:50 Cholesterol 152 mg/dL (<200) 03/21/18 18:50 LDL Cholesterol Direct 95 mg/dL (75-193) 03/21/18 18:50 HDL Cholesterol 30 mg/dL (23-92) 03/21/18 18:50 TSH 1.32 uIU/ml (0.34-5.60) 03/21/18 18:50 Salicylates < 25.0 mg/L (30.0-100.0) L 03/21/18 18:50 Acetaminophen < 10.0 ug/mL (10.0-30.0) L 03/21/18 18:50 Ethyl Alcohol < 10 mg/dL (0-10) 03/21/18 18:50 RPR NONREACTIVE (NONREACTIVE) 03/21/18 18:50 - Physical Exam Vitals and I&O: Vital Signs Temp 98.0 F 04/04/18 06:04 Pulse 89 04/04/18 08:20 Resp 18 04/04/18 06:04 BP 132/66 04/04/18 08:20 Pulse Ox 99 04/04/18 06:04 Intake & Output 04/03/18 04/04/18 04/04/18 18:59 06:59 18:59 Intake Total 900 240 Balance 900 240 Intake: Oral 900 240 Other: # Voids 4 1 # Bowel Movements 1 Active Medications: Current Medications Acetaminophen (Tylenol) 650 mg PO Q4H PRN PRN Reason: Pain Or Fever above 101 Stop: 05/20/18 23:48 Al Hydrox/Mg Hydrox/Simethicone (Maalox) 30 ml PO Q4HR PRN PRN Reason: GI DISTRESS Stop: 05/20/18 23:10 Last Admin: 03/26/18 17:23 Dose: 30 ml Amlodipine Besylate (Norvasc) 5 mg PO DAILY [facility] Stop: 05/21/18 08:59 Last Admin: 04/04/18 08:19 Dose: 5 mg Atorvastatin Calcium (Lipitor) 10 mg PO [facility] Stop: 05/21/18 20:59 Last Admin: 04/03/18 20:41 Dose: 10 mg Docusate Sodium (Colace) 100 mg PO DAILY [facility] Stop: 05/21/18 08:59 Last Admin: 04/04/18 08:15 Dose: 100 mg Glucagon (Glucagen) 1 mg IM DAILY PRN PRN Reason: High Sugar Levels Stop: 05/21/18 08:58 Insulin Aspart (Novolog) 0 units SUBQ [facility]; Protocol Stop: 05/21/18 07:29 Last Admin: 04/04/18 11:22 Dose: Not Given Insulin Detemir (Levemir Insulin) 40 units SUBQ HS [facility] Stop: 05/24/18 20:59 Last Admin: 04/03/18 20:41 Dose: 40 units Lisinopril (Zestril) 10 mg PO DAILY [facility] Stop: 05/21/18 08:59 Last Admin: 04/04/18 08:20 Dose: 10 mg Lorazepam (Ativan) 0.5 mg PO Q4HR PRN; Protocol PRN Reason: Anxiety Stop: 04/20/18 23:10 Magnesium Hydroxide (Milk Of Magnesia) 30 ml PO HS PRN PRN Reason: Constipation Metformin HCl (Glucophage) 1,000 mg PO BIDWM [facility] Stop: 05/21/18 07:59 Last Admin: 04/04/18 08:15 Dose: 1,000 mg Multivitamins/Vitamin C (Theragran) 1 tab PO DAILY [facility] Stop: 05/21/18 08:59 Last Admin: 04/04/18 08:15 Dose: 1 tab Quetiapine Fumarate (Seroquel) 37.5 mg PO BID [facility]; Protocol Stop: 06/01/18 16:59 Last Admin: 04/04/18 08:14 Dose: 37.5 mg Zolpidem Tartrate (Ambien) 5 mg PO HS PRN PRN Reason: Insomnia Stop: 05/20/18 23:10 HEENT: NC/AT, PERRLA, EOMI Neck: Supple, No JVD, No thyromegaly Lungs: CTAB Cardiovascular: RRR, Normal S1, Normal S2 Abdomen: soft, non-tender, non-distended, positive bowel sound Extremities: excoriation Neurological: no change Internal Medicine Assmt/Plan - Assessment Assessment: ASSESSMENT: 1. Hypertension. 2. Hypercholesterolemia. 3. Diabetes. 4. Anemia. 5. Renal insufficiency. 6. Low albumin. - Plan Plan: PLAN: We will continue the patient on IV insulin sliding scale. We will monitor for any signs and symptoms of hypoglycemia. Continue blood pressure medication. Continue psychiatric medication. Continue with current care Nutritional Asmnt/Malnutr-PDOC - Dietary Evaluation Malnutrition Findings (Please click <Entered> for more info): Nutritional Asmnt/Malnutrition Start: 03/22/18 11: 29 Text: Status: Complete Freq: Protocol: Document 03/22/18 11:30 RHAQUE (Rec: 03/22/18 11:38 RHAQBILL CARPENTER) Nutritional Asmnt/Malnutrition Patient General Information Nutritional Screening High Risk Diagnosis Agitation, Combative Pertinent Medical Hx/Surgical Hx HTN, DM, Dyslipidemia, Dementia, Schizophrenia, Bipolar (Per MD's note). Also BPH, Osteoarthritis, Psychosis , Anxiety, Major Depression ( per Nurse's note) Subjective Information Pt preferred to communicate in kyrgyz when he was visited. Did not ask for extra food or snacks. Both the nurse & CURED MEAT PACKING SUPERVISOR described him as very quiet, well behaved and introverted. Neither was certain of any B.M .'s Current Diet Order/ Nutrition Support [place] [id number] GM Patient / S.O Not Indicated Pertinent Medications Maalox, Lipitor, Docusate, Glucagon, Insulin Aspart, Insulin Detemir, MOM, Metformin HCl, Multivitamins, Ambien Pertinent Labs (03/21) Gluc 196; (03/22) POC Gluc 284 Nutritional Hx/Data Height 1.73 m Height (Calculated Centimeters) 172.7 Current Weight (lbs) 74.843 kg Weight (Calculated Kilograms) 74.8 Weight (Calculated Grams) 38753.7 [place] Body Weight 154 % [place] Body Weight 107 Body Mass Index (BMI) 25.0 Weight Status Approriate GI Symptoms GI Symptoms None Last BM None Noted Difficult in: None Food Allergies No Cultural/Ethnic/Caodaism Belief None Noted Skin Integrity/Comment: No documentation available Current %PO Good (75-100%) Estimated Nutritional Goals BEE in Kcals: Adj wt of IBW Calories/Kcals/Kg 25-30 Kcals Calculated 9993-4161 Protein g/k.8-1 Protein Calculated 57-71 Fluid: ml 0317-7564 Nutritional Problem 1. Problem Problem altered Nutritional related Lab values Etiology due to inadequate medication dosage aeb Signs/Symptoms: Hyperglycemia: (03/21) Gluc 196 ; (03/22) POC Gluc 284 Malnutrition Alert Is there a minimum of two criteria No selected? Query Text:Check all the applicable criteria. A minimum of two criteria are recommended for diagnosis of either severe or non-severe malnutrition. Malnutrition Related to Morbid Obesity Malnutrition related to morbid obesity No Intervention/Recommendation Comments Recommend MD's adjustment of DM medication and continuation of [place] [address] diet. Expected Outcomes/Goals Expected Outcomes/Goals - Maintain 100% PO Intake - Gluc labs return to WNL - Monitor for constipation, no record of B.M.'s since admission - F/U in 3-5 days as
--- NOTE | 2018-04-06 22:39 | Discharge Summary ---
DATE OF DISCHARGE: 04/04/2018 AGE: 63. SEX: Male. PHYSICIAN: Viraj Jefferson MD, MPH FINAL DIAGNOSES: PRIMARY DIAGNOSES: Schizoaffective disorder, mixed type, severe, with psychotic features. REASON FOR HOSPITALIZATION: The patient was admitted to the hospital from [facility] because of increased agitation and combative behavior towards the staff. The patient was suspicious and paranoid. HOSPITAL COURSE: The patient continued to be suspicious and paranoid and agitated. The patient also needed redirection. The patient was started on Seroquel and the dose adjusted to 37.5 mg twice a day. The patient became calmer and less agitated. Also interacted appropriately. The patient was not suicidal or homicidal, and he also was easier to follow directions and the patient was discharged from the hospital back to [facility]. Physical exam of the patient was basically within normal. The patient has no major medical issues while in the hospital. AFTER DISCHARGE PLANS: The patient will return to [facility] with plans for follow him up there. EXPECTED OUTCOME AFTER DISCHARGE: Fair if the patient continued to take his psychotropic medications and follow up with discharge plans. JOB# [id number]
== END 2018-04-04 15:30 | DRG 885 ==
LOC: ER 17:12 → GERO 20:23
PROVIDERS: ADMIT Psychiatry & Neurology Psychiatry; ATTEND Psychiatry & Neurology Psychiatry
DX: F25.0 Schizoaffective disorder, bipolar type (principal); E78.5 Hyperlipidemia, unspecified; D64.9 Anemia, unspecified; N18.2 Chronic kidney disease, stage 2 (mild); F03.90 Unspecified dementia, unspecified severity, without behavioral disturbance, psychotic disturbance, mood disturbance, and anxiety; F29 Unspecified psychosis not due to a substance or known physiological condition; E78.00 Pure hypercholesterolemia, unspecified; I12.9 Hypertensive chronic kidney disease with stage 1 through stage 4 chronic kidney disease, or unspecified chronic kidney disease; E11.22 Type 2 diabetes mellitus with diabetic chronic kidney disease; Z88.8 Allergy status to other drugs, medicaments and biological substances; Z83.3 Family history of diabetes mellitus; Z79.4 Long term (current) use of insulin; Z82.49 Family history of ischemic heart disease and other diseases of the circulatory system
CPT/HCPCS: 36415-UA; 80053-TC; 80061-TC; 80320-TC; 80329-TC; 82948-90; 83036-90; 84443-TC; 84484-TC; 85025-TC; 86592-TC; 93005; G0410; J1815; Z7610